=== PATIENT | female | born 1960 ===

== ENCOUNTER 2019-12-09 14:43 | Inpatient (IN) | payer OTHER ==
[2019-12-09] MEDS ORDERED: SODIUM CHLORIDE 0.9% 500 ML 500 ML IV STA (15:38)
[2019-12-09] MEDS ORDERED: HYDROmorphone 0.5 MG/0.5 ML SYRINGE IVP STA (15:38)
--- NOTE | 2019-12-09 15:42 | ED ---
General Adult HPI - General Chief complaint: Abdominal Pain Stated complaint: Abdominal pain Time Seen by Provider: 12/09/19 15:31 Source: family, RN notes reviewed, old records reviewed Mode of arrival: ambulatory Limitations: language barrier - History of Present Illness Initial comments: 59-year-old female presenting for evaluation of abdominal pain, poor appetite and oral intake, fever, vaginal bleeding. History is very limited history is obtained from the patient's who speaks limited Vietnamese but is able to give historical details. States that over the past several days she's had diffuse abdominal pain dysuria and intermittent vaginal bleeding. Denies rectal bleeding. Only medication the patient is currently taking his acetaminophen. According to her she has no previous medical or surgical history. She has not been eating well in the past several days. There is been no vomiting. No diarrhea. Pain is generalized abdominal pain. - Related Data Home Medications Medication Instructions Recorded Confirmed Acetaminophen [Tylenol Extra 500 mg PO BID 12/09/19 12/09/19 Strength] Naproxen Sodium [Aleve] 220 mg PO Q6H 12/09/19 12/09/19 Allergies Allergy/AdvReac Type Severity Reaction Status Date / Time No Known Allergies Allergy Verified 12/09/19 17:19 Review of Systems ROS Statement: Those systems with pertinent positive or pertinent negative responses have been documented in the HPI. ROS Other: All systems not noted in ROS Statement are negative. Past Medical History Past Medical History: No Reported History History of Any Multi-Drug Resistant Organisms: None Reported Past Surgical History: No Surgical Hx Reported Past Psychological History: No Psychological Hx Reported Smoking Status: Never smoker Past Alcohol Use History: None Reported Past Drug Use History: None Reported General Exam Limitations: no limitations General appearance: alert, in no apparent distress Head exam: Present: atraumatic, normocephalic Eye exam: Present: normal appearance, PERRL ENT exam: Present: mucous membranes dry Neck exam: Present: normal inspection. Absent: tenderness, meningismus Respiratory exam: Present: normal lung sounds bilaterally, other (Tachypneic with good air entry). Absent: respiratory distress Cardiovascular Exam: Present: normal rhythm, tachycardia GI/Abdominal exam: Present: soft, distended, tenderness. Absent: guarding, rebound Extremities exam: Present: normal inspection, normal capillary refill. Absent: pedal edema Neurological exam: Present: alert Skin exam: Present: warm, dry, intact. Absent: cyanosis, diaphoretic Course Vital Signs 12/09/19 12/09/19 12/09/19 15:23 17:46 18:37 Temperature 100.2 F H 103.3 F H Pulse Rate 107 H 112 H 113 H Respiratory 20 18 20 Rate Blood Pressure 105/70 125/81 145/93 O2 Sat by Pulse 95 95 94 L Oximetry EKG Findings - EKG Comments: EKG Findings:: EKG: Sinus tachycardia, rate of 106, NM interval 128, QRS duration 94, QTC of 459, no ST segment elevation. Medical Decision Making - Medical Decision Making 59-year-old female with diffuse abdominal pain, fever. History limited. On exam patient has mild diffuse tenderness to palpation. She is tachypneic with good air entry. No documented medical history. Patient's has complete workup initiated including laboratory testing, CT abdomen pelvis, ultrasound of pelvis. White count normal 7.5, hemoglobin stable 15.2. She has a lactic acid of 3.2 which is likely combination of both infectious but predominantly dehydration secondary to diabetic ketoacidosis. She has a mildly elevated potassium of 5.4. She is acidotic with a CO2 of 16 and an anion gap of 25. Glucose is 885. She does have a transaminitis, however computed tomography scan does not reveal any liver or gallbladder pathology. She has CT evidence of pyelonephritis. Urinalysis is consistent with diabetic ketoacidosis with 4+ glucose and 3+ ketones as well as signs of urinary tract infection. She's given IV hydration, started on insulin infusion, IV antibiotics. She has down trending glucose. She is evaluated by Dr. Patino in the emergency department who will admit. She is placed in a monitored bed. - Lab Data Result diagrams: 12/09/19 15:53 12/09/19 15:53 Lab Results 12/09/19 12/09/19 12/09/19 Range/Units 15:53 15:53 15:53 WBC 7.5 (3.8-10.6) k/uL RBC 5.03 (3.80-5.40) m/uL Hgb 15.2 (11.4-16.0) gm/dL Hct 49.7 H (34.0-46.0) % MCV 98.9 (80.0-100.0) fL MCH 30.2 (25.0-35.0) pg MCHC 30.6 L (31.0-37.0) g/dL RDW 13.0 (11.5-15.5) % Plt Count 196 (150-450) k/uL Neutrophils % 89 % Lymphocytes % 6 % Monocytes % 3 % Eosinophils % 0 % Basophils % 0 % Neutrophils # 6.7 (1.3-7.7) k/uL Lymphocytes # 0.5 L (1.0-4.8) k/uL Monocytes # 0.3 (0-1.0) k/uL Eosinophils # 0.0 (0-0.7) k/uL Basophils # 0.0 (0-0.2) k/uL Hypochromasia Marked PT 10.6 (9.0-12.0) sec INR 1.0 (<1.2) APTT 23.4 (22.0-30.0) sec Sodium (137-145) mmol/L Potassium (3.5-5.1) mmol/L Chloride (98-107) mmol/L Carbon Dioxide (22-30) mmol/L Anion Gap mmol/L BUN (7-17) mg/dL Creatinine (0.52-1.04) mg/dL Est GFR (CKD-EPI)AfAm (>60 ml/min/1.73 sqM) Est GFR (CKD-EPI)NonAf (>60 ml/min/1.73 sqM) Glucose (74-99) mg/dL Lactic Ac Sepsis Rflx Plasma Lactic Acid Rolo (0.7-2.0) mmol/L Calcium (8.4-10.2) mg/dL Total Bilirubin (0.2-1.3) mg/dL AST (14-36) U/L ALT (4-34) U/L Alkaline Phosphatase (38-126) U/L Creatine Kinase (30-135) U/L Troponin I (0.000-0.034) ng/mL Total Protein (6.3-8.2) g/dL Albumin (3.5-5.0) g/dL Amylase (30-110) U/L Lipase (23-300) U/L Urine Color Colorless Urine Appearance Clear (Clear) Urine pH 5.0 (5.0-8.0) Ur Specific [place] 1.026 (1.001-1.035) Urine Protein Negative (Negative) Urine Glucose (UA) 4+ H (Negative) Urine Ketones 3+ H (Negative) Urine Blood Small H (Negative) Urine Nitrite Negative (Negative) Urine Bilirubin Negative (Negative) Urine Urobilinogen <2.0 (<2.0) mg/dL Ur Leukocyte Esterase Small H (Negative) Urine RBC 14 H (0-5) /hpf Urine WBC 21 H (0-5) /hpf Ur Squamous Epith Cells <1 (0-4) /hpf Urine Bacteria Rare H (None) /hpf Urine Mucus Rare H (None) /hpf Blood Type Blood Type Recheck Bld Type Recheck Status Antibody Screen Spec Expiration Date 12/09/19 12/09/19 12/09/19 Range/Units 15:53 15:53 15:53 WBC (3.8-10.6) k/uL RBC (3.80-5.40) m/uL Hgb (11.4-16.0) gm/dL Hct (34.0-46.0) % MCV (80.0-100.0) fL MCH (25.0-35.0) pg MCHC (31.0-37.0) g/dL RDW (11.5-15.5) % Plt Count (150-450) k/uL Neutrophils % % Lymphocytes % % Monocytes % % Eosinophils % % Basophils % % Neutrophils # (1.3-7.7) k/uL Lymphocytes # (1.0-4.8) k/uL Monocytes # (0-1.0) k/uL Eosinophils # (0-0.7) k/uL Basophils # (0-0.2) k/uL Hypochromasia PT (9.0-12.0) sec INR (<1.2) APTT (22.0-30.0) sec Sodium 134 L (137-145) mmol/L Potassium 5.4 H (3.5-5.1) mmol/L Chloride 93 L (98-107) mmol/L Carbon Dioxide 16 L (22-30) mmol/L Anion Gap 25 mmol/L BUN 19 H (7-17) mg/dL Creatinine 0.90 (0.52-1.04) mg/dL Est GFR (CKD-EPI)AfAm 81 (>60 ml/min/1.73 sqM) Est GFR (CKD-EPI)NonAf 70 (>60 ml/min/1.73 sqM) Glucose 885 H* (74-99) mg/dL Lactic Ac Sepsis Rflx Plasma Lactic Acid Rolo 3.2 H* (0.7-2.0) mmol/L Calcium 10.9 H (8.4-10.2) mg/dL Total Bilirubin 0.7 (0.2-1.3) mg/dL AST 67 H (14-36) U/L ALT 51 H (4-34) U/L Alkaline Phosphatase 233 H (38-126) U/L Creatine Kinase 30 (30-135) U/L Troponin I <0.012 (0.000-0.034) ng/mL Total Protein 9.1 H (6.3-8.2) g/dL Albumin 4.5 (3.5-5.0) g/dL Amylase 77 (30-110) U/L Lipase 68 (23-300) U/L Urine Color Urine Appearance (Clear) Urine pH (5.0-8.0) Ur Specific [place] (1.001-1.035) Urine Protein (Negative) Urine Glucose (UA) (Negative) Urine Ketones (Negative) Urine Blood (Negative) Urine Nitrite (Negative) Urine Bilirubin (Negative) Urine Urobilinogen (<2.0) mg/dL Ur Leukocyte Esterase (Negative) Urine RBC (0-5) /hpf Urine WBC (0-5) /hpf Ur Squamous Epith Cells (0-4) /hpf Urine Bacteria (None) /hpf Urine Mucus (None) /hpf Blood Type Blood Type Recheck Bld Type Recheck Status Antibody Screen Spec Expiration Date 12/09/19 12/09/19 Range/Units 15:53 16:39 WBC (3.8-10.6) k/uL RBC (3.80-5.40) m/uL Hgb (11.4-16.0) gm/dL Hct (34.0-46.0) % MCV (80.0-100.0) fL MCH (25.0-35.0) pg MCHC (31.0-37.0) g/dL RDW (11.5-15.5) % Plt Count (150-450) k/uL Neutrophils % % Lymphocytes % % Monocytes % % Eosinophils % % Basophils % % Neutrophils # (1.3-7.7) k/uL Lymphocytes # (1.0-4.8) k/uL Monocytes # (0-1.0) k/uL Eosinophils # (0-0.7) k/uL Basophils # (0-0.2) k/uL Hypochromasia PT (9.0-12.0) sec INR (<1.2) APTT (22.0-30.0) sec Sodium (137-145) mmol/L Potassium (3.5-5.1) mmol/L Chloride (98-107) mmol/L Carbon Dioxide (22-30) mmol/L Anion Gap mmol/L BUN (7-17) mg/dL Creatinine (0.52-1.04) mg/dL Est GFR (CKD-EPI)AfAm (>60 ml/min/1.73 sqM) Est GFR (CKD-EPI)NonAf (>60 ml/min/1.73 sqM) Glucose (74-99) mg/dL Lactic Ac Sepsis Rflx Y Plasma Lactic Acid Rolo (0.7-2.0) mmol/L Calcium (8.4-10.2) mg/dL Total Bilirubin (0.2-1.3) mg/dL AST (14-36) U/L ALT (4-34) U/L Alkaline Phosphatase (38-126) U/L Creatine Kinase (30-135) U/L Troponin I (0.000-0.034) ng/mL Total Protein (6.3-8.2) g/dL Albumin (3.5-5.0) g/dL Amylase (30-110) U/L Lipase (23-300) U/L Urine Color Urine Appearance (Clear) Urine pH (5.0-8.0) Ur Specific [place] (1.001-1.035) Urine Protein (Negative) Urine Glucose (UA) (Negative) Urine Ketones (Negative) Urine Blood (Negative) Urine Nitrite (Negative) Urine Bilirubin (Negative) Urine Urobilinogen (<2.0) mg/dL Ur Leukocyte Esterase (Negative) Urine RBC (0-5) /hpf Urine WBC (0-5) /hpf Ur Squamous Epith Cells (0-4) /hpf Urine Bacteria (None) /hpf Urine Mucus (None) /hpf Blood Type O Positive Blood Type Recheck No Previous Record Bld Type Recheck Status CABO Indicated Antibody Screen NEGATIVE Spec Expiration Date 12/12/2019 - 7644 Critical Care Time Critical Care Time: Yes Total Critical Care Time: 35 Disposition Clinical Impression: Pyelonephritis, Diabetic ketoacidosis Disposition: ADMITTED IP TO THIS [facility] Condition: Serious Is patient prescribed a controlled substance at d/c from ED?: No Decision to Admit Reason: Admit from EC Decision Date: 12/09/19 Decision Time: 17:45
[2019-12-09 16:27] LABS: Appearance,Urine Clear (Clear); Bacteria,Urine Rare /hpf; Bilirubin,Urine Negative (Negative); Blood,Urine Small (Negative); Color,Urine Colorless; Glucose,Urine (UA) 4+ (Negative); Leukocyte Esterase,Urine Small (Negative); Mucus,Urine Rare /hpf; Nitrite,Urine Negative (Negative); Protein,Urine Negative (Negative); RBC,Urine 14 /hpf (0-5); Specific Gravity,Urine 1.026 (1.001-1.035); Squamous Epithelial Cell,Urine <1 /hpf (0-4); Urobilinogen,Urine <2.0 mg/dL (<2.0); WBC,Urine 21 /hpf (0-5)
[2019-12-09 16:29] LABS: Ketones,Urine 3+ (Negative)
[2019-12-09 16:33] LABS: Partial Thromboplastin Time 23.4 sec (22.0-30.0); Prothrombin Time 10.6 sec (9.0-12.0)
[2019-12-09 16:39] LABS: Basophils % (A) 0 %; Eosinophils % (A) 0 %; HCT 49.7 % (34.0-46.0); HGB 15.2 gm/dL (11.4-16.0); Hypochromasia Marked; Lymphocytes # (A) 0.5 k/uL (1.0-4.8); Lymphocytes % (A) 6 %; MCH 30.2 pg (25.0-35.0); MCHC 30.6 g/dL (31.0-37.0); MCV 98.9 fL (80.0-100.0); Monocytes # (A) 0.3 k/uL (0-1.0); Monocytes % (A) 3 %; Neutrophils # (A) 6.7 k/uL (1.3-7.7); Neutrophils % (A) 89 %; Platelet Count 196 k/uL (150-450); RBC 5.03 m/uL (3.80-5.40); WBC 7.5 k/uL (3.8-10.6)
[2019-12-09] MEDS ORDERED: SODIUM CHLORIDE 0.9% 500 ML 500 ML IV ONE ×2 (16:46→17:15)
[2019-12-09] MEDS ORDERED: cefTRIAXone IN SWFI 1,000 MG/10 ML SYRINGE IVP STA (16:46)
[2019-12-09 16:55] LABS: Albumin 4.5 g/dL (3.5-5.0); Calcium 10.9 mg/dL (8.4-10.2); Total Bilirubin 0.7 mg/dL (0.2-1.3); Total Protein 9.1 g/dL (6.3-8.2)
[2019-12-09 17:05] LABS: Potassium 5.4 mmol/L (3.5-5.1)
--- NOTE | 2019-12-09 17:54 | CT ---
EXAMINATION TYPE: CT abdomen pelvis w con DATE OF EXAM: 12/09/2019 COMPARISON: HISTORY: abdominal pain CT DLP: 724 mGycm Automated exposure control for dose reduction was used. CONTRAST: Performed with IV Contrast, patient injected with 100 mL of Isovue 300. Images obtained from the diaphragm to the floor the pelvis with IV contrast. There is some mild atelectasis at the posterior lung bases. Heart size is normal. There is no pericar dial effusion. There is no pleural effusion. There is some fatty infiltration of the liver. Spleen is intact. There is no evidence of pancreatic mass. Stomach appears normal. Gallbladder appears normal. There is no adrenal mass. There is some mild decreased cortical enhancement involving the lower pole of the right kidney that measures 3 cm. There is patchy decreased enhancement of the cortex posterior and superior right kidney. There is 1.5 cm area decreased cortical enhancement anterior left kidney. There is no hydronephrosis. Ureters are not dilated. There is no retroperitoneal adenopathy. Bladder distends smoothly. There is no inguinal hernia. The bony pelvis is intact. Lumbar spine is intact. T here is no compression fracture. Hip joints appear normal. There is vacuum disc at L4-5. There is no mesenteric edema. There is no ascites or free air. There is no bowel obstruction. Appendi x is not definitely seen. There is no sign of thickened appendix. IMPRESSION: Mild fatty infiltration of the liver. Minimal atelectasis at the lung bases. Cortical decreased enhancement in both kidneys as above is more noticeable in the lower pole of the r ight kidney. I would consider possibilities of acute pyelonephritis and renal ischemia. No evidence o f any significant atherosclerotic vascular disease seen.
[2019-12-09] MEDS ORDERED: ACETAMINOPHEN TAB 500 MG TAB PO STA (18:00)
[2019-12-09] MEDS: INSULIN REGULAR 100 UNIT in SODIUM CHLORIDE 0.9% 100 ML IV SCH (18:32)
[2019-12-09 18:45] LABS: Glucose,Whole Blood 509 mg/dL (75-99)
[2019-12-09] MEDS: SODIUM CHLORIDE 0.9% 1,000 ML IV SCH ×2 (18:47→23:00)
--- NOTE | 2019-12-09 18:49 | US ---
EXAMINATION TYPE: US pelvis complete transvag DATE OF EXAM: 12/09/2019 COMPARISON: NONE CLINICAL HISTORY: Postmenopausal vaginal bleeding. ; right lateral abd pain. TECHNIQUE: . Transabdominal sonographic images of the pelvis were acquired. Transvaginal sonographi c images were medically necessary to better assess the following anatomy: endometrium. Patient had fu ll bladder on TV US thus TA US also provided additional views. Date of LMP: unknown EXAM MEASUREMENTS: Uterus: 6.0 z 4.4 x 2.0 cm Endometrial Stripe: 0.4 cm Right Ovary: 1.5 x 1.0 x 0.9 cm Left Ovary: 1.7 x 0.6 x 0.9 cm 1. Uterus: Anteverted 2. Endometrium: thickness is wnl for post menopausal bleeding; no blood was observed on the TV probe post removal by US technologist/ciaio counter molder 3. Right Ovary: wnl 4. Left Ovary: wnl Spectral, color and waveform doppler imaging shows good arterial and venous flow within the ovaries ; there is no evidence for ovarian torsion. 5. Bilateral Adnexa: wnl 6. Posterior cul-de-sac: wnl IMPRESSION: Normal uterus and endometrium. No adnexal mass. No free fluid. No evidence of ovarian torsion.
[2019-12-09] MEDS ORDERED: HYDROmorphone 0.5 MG/0.5 ML SYRINGE IVP PRN (19:22)
[2019-12-09 19:47] LABS: Glucose,Whole Blood 458 mg/dL (75-99)
[2019-12-09] MEDS: PIPERACILLIN-TAZOBACTAM 3.375 GM in SODIUM CHLORIDE 0.9% 100 ML IVPB SCH (20:14)
[2019-12-09] MEDS: PANTOPRAZOLE 40 MG/10 ML VIAL IVP SCH (20:14)
[2019-12-09] MEDS: HYDROcodone/APAP 5-325MG 1 EACH TAB PO PRN (20:15)
[2019-12-09 20:19] LABS: African American GFR (CKD) >90 (>60 ml/min/1.73 sqM); Anion Gap 20 mmol/L; Blood Urea Nitrogen 18 mg/dL (7-17); Carbon Dioxide 14 mmol/L (22-30); Chloride 106 mmol/L (98-107); Non-African American GFR(CKD) >90 (>60 ml/min/1.73 sqM); Phosphorus 3.5 mg/dL (2.5-4.5); Potassium 4.4 mmol/L (3.5-5.1); Sodium 140 mmol/L (137-145)
[2019-12-09 20:22] LABS: Glucose 511 mg/dL (74-99)
[2019-12-09] MEDS: HEPARIN SODIUM,PORCINE 5,000 UNIT/ML 1 ML VIAL SQ SCH (20:30)
[2019-12-09 20:40] LABS: Glucose,Whole Blood 433 mg/dL (75-99)
--- NOTE | 2019-12-09 20:43 | HP ---
HISTORY AND PHYSICAL DATE OF SERVICE: 12/09/2019 CHIEF COMPLAINTS: Abdominal pain as well as diabetes mellitus. HISTORY OF PRESENT ILLNESS: This 59-year-old woman who is originally from [place], [place] with no significant medical problems and not being followed by a primary physician in the outpatient setting, was complaining of abdominal pain which was felt mostly in the right side of the abdomen, lower part. The patient was brought to [facility] and admitted for further evaluation and treatment. The patient also had poor appetite, poor oral intake, and also vaginal bleeding. The initial evaluation showed uncontrolled blood sugars at 885 with evidence of possible diabetic ketoacidosis. The was admitted for evaluation and treatment. The white count is normal. Insulin drip was initiated. Urine showed possible UTI. There is no history of any fever, rigor or chills. No history of headache, loss of consciousness, seizures. The patient is unable to speak Panamanian; most of the history is taken from my discussion with the staff and ER physician as well as review of the chart and discussion with the patient's at the bedside. PAST MEDICAL HISTORY: No significant cardiovascular or respiratory illness. MEDICATIONS: Naprosyn and Tylenol. ALLERGIES: NONE. FAMILY HISTORY: No history of heart disease or strokes in the family. SOCIAL HISTORY: No history of smoking. No history of alcohol intake. REVIEW OF SYSTEMS: ENT: No diminished hearing. No diminished vision. CARDIOVASCULAR SYSTEM: No angina, palpitations. RESPIRATORY SYSTEM: No cough, hemoptysis. GI: No nausea, vomiting. : No dysuria or retention. NERVOUS SYSTEM: No numbness, weakness. ALLERGY/IMMUNOLOGY: No asthma, hayfever. MUSCULOSKELETAL: As mentioned earlier. HEMATOLOGY/ONCOLOGY: No history of anemia. ENDOCRINE: No history of diabetes, hypothyroidism. CONSTITUTIONAL: As mentioned earlier. DERMATOLOGY: Negative. RHEUMATOLOGY: Negative. PSYCHIATRY: As mentioned earlier. PHYSICAL EXAMINATION: Patient alert and oriented x3. Pulse is 113, blood pressure 145/93, respiration 20, temperature 103, pulse ox 94% on room air. HEENT: Conjunctivae normal. Oral mucosa moist. NECK: No jugular venous distention. No carotid bruit. No lymph node enlargement. CARDIOVASCULAR SYSTEM: S1, S2 muffled. No S3. No S4. RESPIRATORY SYSTEM: Breath sounds diminished at the bases. No rhonchi. No crackles. ABDOMEN: Soft. Mild diffuse tenderness. No guarding. No rigidity. No mass palpable. LEGS: No edema. No swelling. NERVOUS SYSTEM: Higher functions as mentioned earlier. Moves all 4 limbs. No focal motor or sensory deficit. LYMPHATICS: No lymph node palpable in neck, axillae or groin. SKIN: No ulcer, rash, bleeding. JOINTS: No active deforming arthropathy. LABS: WBC 7.5, hemoglobin 15.2, sodium 134, potassium 5.4. Glucose noted. Lactic acid 3.2. CT scan of the abdomen and pelvis showed mild fatty infiltration of the liver and cortical decreased enhancement, possible acute pyelonephritis and renal ischemia. ASSESSMENT: 1. Diabetes mellitus, type 2, new onset, with hyperglycemia with acute diabetic ketosis, present on admission. 2. Possible right pyelonephritis and urinary tract infection with sepsis. 3. Possible vaginal bleeding. 4. Severe abdominal pain. 5. Hyponatremia. 6. Hyperkalemia. 7. Elevated lactic acid. 8. Increased AST, ALT, possibly secondary to sepsis. 9. Possible urinary tract infection. RECOMMENDATIONS AND DISCUSSION: In this 59-year-old woman who presented with multiple complex medical issues, we will monitor the patient closely, continue the current medications, continue symptomatic treatment. Otherwise, will initiate insulin protocol according to DKA protocol. I would also recommend blood cultures and broad-spectrum antibiotics. As far as the vaginal bleeding is concerned, I would VISOR INSTALLER evaluation. Overall prognosis is guarded because of multiple complex medical issues. Further recommendations to follow. I also recommend that the patient follow up with a primary physician closely in the outpatient setting. Discussed with the patient's , who understands. Further recommendations to follow. ANTELMOL / IJN: [id number] / YANETH
[2019-12-09 21:21] LABS: Glucose,Whole Blood 323 mg/dL (75-99)
[2019-12-09 22:51] LABS: Glucose,Whole Blood 301 mg/dL (75-99)
[2019-12-09 23:09] LABS: Glucose,Whole Blood 267 mg/dL (75-99)
[2019-12-09] MEDS ORDERED: IBUPROFEN 400 MG TAB PO STA (23:46)
[2019-12-10 00:22] LABS: Glucose,Whole Blood 238 mg/dL (75-99)
[2019-12-10] MEDS: D5-0.45% NACL WITH KCL 20MEQ/L 1,000 ML IV SCH ×5 (01:10→21:45)
[2019-12-10 01:12] LABS: African American GFR (CKD) >90 (>60 ml/min/1.73 sqM); Anion Gap 9 mmol/L; Blood Urea Nitrogen 16 mg/dL (7-17); Carbon Dioxide 23 mmol/L (22-30); Chloride 110 mmol/L (98-107); Glucose 263 mg/dL (74-99); Non-African American GFR(CKD) >90 (>60 ml/min/1.73 sqM); Potassium 4.2 mmol/L (3.5-5.1); Sodium 142 mmol/L (137-145)
[2019-12-10 01:26] LABS: Glucose,Whole Blood 245 mg/dL (75-99)
[2019-12-10 02:16] LABS: Glucose,Whole Blood 233 mg/dL (75-99)
[2019-12-10 03:28] LABS: Glucose,Whole Blood 182 mg/dL (75-99)
[2019-12-10] MEDS: ACETAMINOPHEN TAB 325 MG TAB PO PRN ×3 (03:35→20:48)
[2019-12-10] MEDS: PIPERACILLIN-TAZOBACTAM 3.375 GM in SODIUM CHLORIDE 0.9% 100 ML IVPB SCH ×3 (03:42→20:35)
[2019-12-10 04:36] LABS: Glucose,Whole Blood 154 mg/dL (75-99)
[2019-12-10 05:30] LABS: Glucose,Whole Blood 124 mg/dL (75-99)
[2019-12-10] MEDS: INSULIN REGULAR 100 UNIT in SODIUM CHLORIDE 0.9% 100 ML IV SCH ×6 (05:33→19:00)
[2019-12-10] MEDS ORDERED: SODIUM CHLORIDE 0.9% 500 ML 500 ML IV ONE ×2 (05:40→07:02)
[2019-12-10 06:18] LABS: Glucose,Whole Blood 109 mg/dL (75-99)
[2019-12-10] MEDS: HEPARIN SODIUM,PORCINE 5,000 UNIT/ML 1 ML VIAL SQ SCH (06:33)
[2019-12-10 07:21] LABS: Glucose,Whole Blood 128 mg/dL (75-99)
[2019-12-10 07:32] LABS: Glucose,Whole Blood 144 mg/dL (75-99)
[2019-12-10 07:44] LABS: Basophils % (A) 0 %; Eosinophils % (A) 0 %; HCT 34.3 % (34.0-46.0); Lymphocytes # (A) 0.6 k/uL (1.0-4.8); Lymphocytes % (A) 11 %; MCH 28.9 pg (25.0-35.0); MCHC 31.7 g/dL (31.0-37.0); Mean Platelet Volume 9.2; Monocytes # (A) 0.3 k/uL (0-1.0); Monocytes % (A) 5 %; Neutrophils # (A) 4.5 k/uL (1.3-7.7); Neutrophils % (A) 81 %; Platelet Count 131 k/uL (150-450); RBC 3.75 m/uL (3.80-5.40); RDW 13.4 % (11.5-15.5); WBC 5.5 k/uL (3.8-10.6)
[2019-12-10 07:54] LABS: HGB 10.9 gm/dL (11.4-16.0); MCV 91.2 fL (80.0-100.0)
[2019-12-10 08:01] LABS: ALT 36 U/L (4-34); AST 57 U/L (14-36); African American GFR (CKD) >90 (>60 ml/min/1.73 sqM); Albumin 2.4 g/dL (3.5-5.0); Alkaline Phosphatase 84 U/L (38-126); Anion Gap 2 mmol/L; Blood Urea Nitrogen 15 mg/dL (7-17); Calcium 7.6 mg/dL (8.4-10.2); Carbon Dioxide 24 mmol/L (22-30); Chloride 113 mmol/L (98-107); Glucose 116 mg/dL (74-99); Non-African American GFR(CKD) >90 (>60 ml/min/1.73 sqM); Potassium 3.8 mmol/L (3.5-5.1); Sodium 139 mmol/L (137-145); Total Bilirubin 0.3 mg/dL (0.2-1.3); Total Protein 5.1 g/dL (6.3-8.2)
[2019-12-10] MEDS: PANTOPRAZOLE 40 MG/10 ML VIAL IVP SCH (08:59)
[2019-12-10 09:08] LABS: Glucose,Whole Blood 213 mg/dL (75-99)
[2019-12-10 10:11] LABS: Glucose,Whole Blood 235 mg/dL (75-99)
[2019-12-10 11:09] LABS: Glucose,Whole Blood 271 mg/dL (75-99)
[2019-12-10] MEDS: HYDROcodone/APAP 5-325MG 1 EACH TAB PO PRN (11:34)
[2019-12-10 12:07] LABS: Glucose,Whole Blood 326 mg/dL (75-99)
--- NOTE | 2019-12-10 12:15 | P.CNPUL ---
History of Present Illness Consult date: 12/10/19 Requesting physician: Sherif Patino Reason for consult: other (Sepsis, and hyperglycemia.) Chief complaint: Abdominal pain and weakness. History of present illness: This is a 59-year-old female from [facility], has been in the [place] for the last 8 months. Patient has no previous medical illnesses, and she was never seen by a physician in [facility] or in the [facility]. Patient presented to the ER yes terday mostly with 1 week history of multiple complaints including difficulty urinating and burning sensation on urination, intermittent episodes of flank abdominal pain bilaterally, poor appetite, and intermittent episodes of minimal vaginal spotting. Patient was evaluated in the ER, and she was noted to have evidence of a urinary tract infection, however the patient also had abnormal urine ketones and 4+ glucose in the urine. Blood sugar was noted to be 885, patient was noted to be acidotic and had low bicarb. With anion gap of 25. Patient was given fluids in the form of 0.9 normal saline, fluid boluses were given, she was placed on the DKA protocol, admitted to the ICU, placed on anti biotics empirically in the form of Rocephin, and I was asked to see this patient on consultation. Upon my evaluation, the patient was doing fairly much better, she had no nausea no vomiting, no abdominal pain, denied any specific complaints. Her anion gap was noted to be closed. Blood sugar was 116. Review of Systems Constitutional: Low-grade fever, weakness, fatigue. HEENT: Negative Pulmonary: Negative GI: Mostly vague abdominal pain Genitourinary: As noted in HPI. Patient had mostly symptoms of dysuria and burning sensation on urination. No hematuria but she had some vaginal bleeding. Endocrine: No previous history of documented diabetes. Neurologic: No headache or blurred vision or dizziness. Hematologic: No clotting bleeding or bruising except for vaginal bleeding. Psychiatric: Negative Skin: Negative Musculoskeletal: Negative Cardiac: Negative Past Medical History Past Medical History: No Reported History History of Any Multi-Drug Resistant Organisms: None Reported Past Surgical History: No Surgical Hx Reported Smoking Status: Never smoker - Past Family History Father Family Medical History: Unable to Obtain Mother Family Medical History: Unable to Obtain Medications and Allergies Home Medications Medication Instructions Recorded Confirmed Type Acetaminophen [Tylenol Extra 500 mg PO BID 12/09/19 12/09/19 History Strength] Naproxen Sodium [Aleve] 220 mg PO Q6H 12/09/19 12/09/19 History Allergies Allergy/AdvReac Type Severity Reaction Status Date / Time Pork/Porcine Containing AdvReac Unknown Verified 12/09/19 20:31 Products [Pork] Physical Exam Vitals: Vital Signs Temp Pulse Pulse Resp BP BP Pulse Ox 12/10/19 07:08 95 95/63 12/10/19 07:01 90/63 12/10/19 06:55 93 87/59 12/10/19 06:36 95 75/53 12/10/19 05:30 98.1 F 95 18 80/55 12/10/19 04:00 102 H 18 12/10/19 03:35 99.2 F 102 H 93/59 93 L 12/10/19 00:15 103 F H 12/10/19 00:00 100.3 F H 100 18 143/83 94 L 12/09/19 20:00 97.9 F 115 H 18 103/58 94 L 12/09/19 19:51 97.9 F 115 H 18 103/58 94 L 12/09/19 18:37 113 H 20 145/93 94 L 12/09/19 17:46 103.3 F H 112 H 18 125/81 95 12/09/19 15:23 100.2 F H 107 H 20 105/70 95 Intake and Output 12/09/19 12/10/19 12/10/19 22:59 06:59 14:59 Intake Total 34.504 72.255 95.241 Output Total 1000 Balance 34.504 -927.745 95.241 Intake: Intake, IV Titration 34.504 72.255 95.241 Amount Insulin Regular 100 unit 34.504 72.255 95.241 In Sodium Chloride 0.9% 100 ml @ 0.1 UNITS/KG/HR 7.33 mls/hr IV .[id number] [facility] Rx#:[id number] Output: Urine 1000 Other: # Voids 0 1 Weight 72.575 kg 72.575 kg Physical Exam: Revealed a 59-year-old female in no distress. Head: Atraumatic normocephalic. HEENT:[Neck is supple.] [No neck masses.] [No thyromegaly.] [No JVD.] They're locked, EOMI, no icterus, no neck masses, no JVD. Chest: [Clear throughout, no crackles, no rhonchi, no wheezes.] Cardiac Exam: [Normal S1 and S2, no S3 gallop, no murmur.] Abdomen: [Soft, nontender, no megaly, no rebound, no guarding, normal bowel sounds.] Extremities: [No clubbing, no edema, no cyanosis.] Good pulses bilaterally. Neurological Exam: [No focal neurologic deficit.] Alert and oriented 3. Psychiatric: Normal mood, affect and normal mental status examination. Skin: No rashes. Results - Laboratory Findings CBC and BMP: 12/10/19 06:50 12/10/19 06:50 PT/INR, D-dimer PT 10.6 sec (9.0-12.0) 12/09/19 15:53 INR 1.0 (<1.2) 12/09/19 15:53 Abnormal lab findings: Abnormal Labs 12/09/19 12/09/19 12/09/19 15:53 15:53 15:53 RBC Hgb Hct 49.7 H MCHC 30.6 L Plt Count Lymphocytes # 0.5 L Sodium 134 L Potassium 5.4 H Chloride 93 L Carbon Dioxide 16 L BUN 19 H Glucose 885 H* POC Glucose (mg/dL) Plasma Lactic Acid Rolo Calcium 10.9 H AST 67 H ALT 51 H Alkaline Phosphatase 233 H Total Protein 9.1 H Albumin Urine Glucose (UA) 4+ H Urine Ketones 3+ H Urine Blood Small H Ur Leukocyte Esterase Small H Urine RBC 14 H Urine WBC 21 H Urine Bacteria Rare H Urine Mucus Rare H 12/09/19 12/09/19 12/09/19 15:53 18:43 19:34 RBC Hgb Hct MCHC Plt Count Lymphocytes # Sodium Potassium Chloride Carbon Dioxide 14 L BUN 18 H Glucose 511 H* POC Glucose (mg/dL) 509 H Plasma Lactic Acid Rolo 3.2 H* Calcium AST ALT Alkaline Phosphatase Total Protein Albumin Urine Glucose (UA) Urine Ketones Urine Blood Ur Leukocyte Esterase Urine RBC Urine WBC Urine Bacteria Urine Mucus 12/09/19 12/09/19 12/09/19 19:46 20:38 21:12 RBC Hgb Hct MCHC Plt Count Lymphocytes # Sodium Potassium Chloride Carbon Dioxide BUN Glucose POC Glucose (mg/dL) 458 H 433 H 323 H Plasma Lactic Acid Rolo Calcium AST ALT Alkaline Phosphatase Total Protein Albumin Urine Glucose (UA) Urine Ketones Urine Blood Ur Leukocyte Esterase Urine RBC Urine WBC Urine Bacteria Urine Mucus 12/09/19 12/09/19 12/10/19 22:23 23:07 00:08 RBC Hgb Hct MCHC Plt Count Lymphocytes # Sodium Potassium Chloride 110 H Carbon Dioxide BUN Glucose 263 H POC Glucose (mg/dL) 301 H 267 H Plasma Lactic Acid Rolo Calcium AST ALT Alkaline Phosphatase Total Protein Albumin Urine Glucose (UA) Urine Ketones Urine Blood Ur Leukocyte Esterase Urine RBC Urine WBC Urine Bacteria Urine Mucus 12/10/19 12/10/19 12/10/19 00:20 01:24 02:14 RBC Hgb Hct MCHC Plt Count Lymphocytes # Sodium Potassium Chloride Carbon Dioxide BUN Glucose POC Glucose (mg/dL) 238 H 245 H 233 H Plasma Lactic Acid Rolo Calcium AST ALT Alkaline Phosphatase Total Protein Albumin Urine Glucose (UA) Urine Ketones Urine Blood Ur Leukocyte Esterase Urine RBC Urine WBC Urine Bacteria Urine Mucus 12/10/19 12/10/19 12/10/19 03:26 04:34 05:28 RBC Hgb Hct MCHC Plt Count Lymphocytes # Sodium Potassium Chloride Carbon Dioxide BUN Glucose POC Glucose (mg/dL) 182 H 154 H 124 H Plasma Lactic Acid Rolo Calcium AST ALT Alkaline Phosphatase Total Protein Albumin Urine Glucose (UA) Urine Ketones Urine Blood Ur Leukocyte Esterase Urine RBC Urine WBC Urine Bacteria Urine Mucus 12/10/19 12/10/19 12/10/19 06:17 06:50 06:50 RBC 3.75 L Hgb 10.9 L D Hct MCHC Plt Count 131 L Lymphocytes # 0.6 L Sodium Potassium Chloride 113 H Carbon Dioxide BUN Glucose 116 H POC Glucose (mg/dL) 109 H Plasma Lactic Acid Rolo Calcium 7.6 L AST 57 H ALT 36 H Alkaline Phosphatase Total Protein 5.1 L Albumin 2.4 L Urine Glucose (UA) Urine Ketones Urine Blood Ur Leukocyte Esterase Urine RBC Urine WBC Urine Bacteria Urine Mucus 12/10/19 12/10/19 12/10/19 07:10 07:31 09:07 RBC Hgb Hct MCHC Plt Count Lymphocytes # Sodium Potassium Chloride Carbon Dioxide BUN Glucose POC Glucose (mg/dL) 128 H 144 H 213 H Plasma Lactic Acid Rolo Calcium AST ALT Alkaline Phosphatase Total Protein Albumin Urine Glucose (UA) Urine Ketones Urine Blood Ur Leukocyte Esterase Urine RBC Urine WBC Urine Bacteria Urine Mucus 12/10/19 12/10/19 10:09 11:08 RBC Hgb Hct MCHC Plt Count Lymphocytes # Sodium Potassium Chloride Carbon Dioxide BUN Glucose POC Glucose (mg/dL) 235 H 271 H Plasma Lactic Acid Rolo Calcium AST ALT Alkaline Phosphatase Total Protein Albumin Urine Glucose (UA) Urine Ketones Urine Blood Ur Leukocyte Esterase Urine RBC Urine WBC Urine Bacteria Urine Mucus - Diagnostic Findings Additional studies: CT of abdomen and pelvis showed mild fatty infiltration of the liver and minimal atelectasis of the lung bases. Also questioned possible pyelonephritis, no hydronephrosis. Transvaginal ultrasound, was noted to be normal. Normal uterus and normal endometrium noted Assessment and Plan Assessment: Impression: Acute diabetic ketoacidosis Acute urinary tract infection, Acute pyelonephritis is strongly suspected. Vaginal bleeding, patient is not clear about the history of vaginal bleeding, however the patient will need to be evaluated by [employer], could not understand from the patient whether the bleeding is vaginal or she is describing hematuria with dysuria. Mostly because of the language barrier. Although I was able to speak to the patient in Irish Recommendation: Continue present supportive care measures Continue to follow the DKA protocol. Her anion gap has closed early this morning. Continue IV fluids. Possibly switch the patient was sliding scale insulin coverage. Continue empiric antibiotics and adjust according to the final urine culture. Continue to monitor in the ICU for the next 24 hours. [employer] consultation is appropriate. We'll continue to follow. Time with Patient: Greater than 30
[2019-12-10 12:26] LABS: Hemoglobin A1C 16.3 % (4.0-6.0)
[2019-12-10 13:12] LABS: Glucose,Whole Blood 310 mg/dL (75-99)
[2019-12-10 14:09] LABS: Glucose,Whole Blood 287 mg/dL (75-99)
[2019-12-10 15:13] LABS: Glucose,Whole Blood 270 mg/dL (75-99)
[2019-12-10 16:07] LABS: Glucose,Whole Blood 230 mg/dL (75-99)
[2019-12-10 17:22] LABS: Glucose,Whole Blood 270 mg/dL (75-99)
[2019-12-10 18:00] LABS: Glucose,Whole Blood 276 mg/dL (75-99)
[2019-12-10 18:56] LABS: Glucose,Whole Blood 221 mg/dL (75-99)
[2019-12-10 20:32] LABS: Glucose,Whole Blood 247 mg/dL (75-99)
[2019-12-10] MEDS: INSULIN DETEMIR (LEVEMIR) 100 UNIT/ML SYR SQ SCH (21:44)
--- NOTE | 2019-12-11 01:45 | P.CONS ---
History of Present Illness - Reason for Consult Consult date: 12/10/19 Gram-negative bacteremia Requesting physician: Sherif Patino - Chief Complaint Generalized weakness and urinary burning x few days - History of Present Illness Patient is a 59-year-old female from [facility] who has been in the [place] for the last 8 months with no significant past medical history has been brought into the ER With symptom of generalized weakness urinary burning frequency and suprapubic discomfort nausea and vomiting along with fever with worsening of her symptoms patient has been brought into the ER on arrival to the patient did have a fever of 103F patient did have a normal white count liver enzymes mildly elevated patient did have a positive UA she did have CT of abdominal pelvis which showed normal gallbladder but it shows abnormality of the right kidney upper pole with concern for pyelonephritis she was also noticed to have elevated blood sugar of 885 patient has been diagnosed with new onset diabetes mellitus with DKA and likely right-sided pyelonephritis patient was started on Rocephin she did have blood cultures obtained and positive for gram-negative bacilli antibiotic was switched over to Zosyn and infectious disease was consulted for further management of antibiotic therapy Review of Systems Positive point has been mentioned in the HPI rest of the systems are negative Past Medical History Past Medical History: No Reported History History of Any Multi-Drug Resistant Organisms: None Reported Past Surgical History: No Surgical Hx Reported Smoking Status: Never smoker - Past Family History Father Family Medical History: Unable to Obtain Mother Family Medical History: Unable to Obtain Medications and Allergies Home Medications Medication Instructions Recorded Confirmed Type Acetaminophen [Tylenol Extra 500 mg PO BID 12/09/19 12/09/19 History Strength] Naproxen Sodium [Aleve] 220 mg PO Q6H 12/09/19 12/09/19 History Allergies Allergy/AdvReac Type Severity Reaction Status Date / Time Pork/Porcine Containing AdvReac Unknown Verified 12/09/19 20:31 Products [Pork] Physical Exam Vitals: Vital Signs Temp Pulse Pulse Resp BP BP Pulse Ox 12/10/19 13:00 103 H 16 99/78 92 L 12/10/19 12:00 100.1 F H 102 H 95 10 L 98/70 95 12/10/19 11:00 108 H 20 100/76 94 L 12/10/19 10:30 103 H 21 100/76 94 L 12/10/19 10:00 99 19 96/63 92 L 12/10/19 09:30 102 H 28 H 96/63 98 12/10/19 09:00 94 22 106/75 98 12/10/19 08:45 91 14 89/68 98 12/10/19 08:30 90 15 93/68 99 12/10/19 08:15 84 17 93/70 98 12/10/19 08:00 98.0 F 89 95 16 90/64 99 12/10/19 07:45 91 22 95/70 98 12/10/19 07:30 96 17 92/64 12/10/19 07:08 95 95/63 12/10/19 07:01 90/63 12/10/19 06:55 93 87/59 12/10/19 06:36 95 75/53 12/10/19 05:30 98.1 F 95 18 80/55 12/10/19 04:00 102 H 18 12/10/19 03:35 99.2 F 102 H 93/59 93 L 12/10/19 00:15 103 F H 12/10/19 00:00 100.3 F H 100 18 143/83 94 L 12/09/19 20:00 97.9 F 115 H 18 103/58 94 L 12/09/19 19:51 97.9 F 115 H 18 103/58 94 L 12/09/19 19:15 118 H 14 96 12/09/19 19:00 115 H 18 145/93 96 12/09/19 18:45 116 H 20 145/93 95 12/09/19 18:37 113 H 20 145/93 94 L 12/09/19 18:30 112 H 12 131/90 12/09/19 18:15 109 H 21 131/90 95 12/09/19 18:00 110 H 21 125/81 93 L 12/09/19 17:46 103.3 F H 112 H 18 125/81 95 12/09/19 17:45 113 H 21 12/09/19 17:38 115 H 25 H 12/09/19 17:15 118 H 16 12/09/19 17:00 113 H 23 12/09/19 16:45 111 H 18 12/09/19 16:30 106 H 15 12/09/19 16:15 109 H 25 H 12/09/19 16:00 106 H 24 12/09/19 15:57 106 H 24 12/09/19 15:23 100.2 F H 107 H 20 105/70 95 Intake and Output 12/09/19 12/10/19 12/10/19 22:59 06:59 14:59 Intake Total 34.504 72.255 346.241 Output Total 1000 3600 Balance 34.504 -927.745 -3253.759 Intake: Intake, IV Titration 34.504 72.255 196.241 Amount Insulin Regular 100 unit 34.504 72.255 196.241 In Sodium Chloride 0.9% 100 ml @ 0.1 UNITS/KG/HR 7.33 mls/hr IV .[id number] [facility] Rx#:[id number] Oral 150 Output: Urine 1000 3600 Other: # Voids 0 1 1 Weight 72.575 kg 67 kg 72.575 kg GENERAL DESCRIPTION: Middle-aged female lying in bed, no distress. No tachypnea or accessory muscle of respiration use. HEENT: Shows Pallor , no scleral icterus. Oral mucous membrane is dry. No pharyngeal erythema or thrush NECK: Trachea central, no thyromegaly. LUNGS: Unlabored breathing. Clear to auscultation anteriorly. No wheeze or crackle. HEART: S1, S2, regular rate and rhythm. No loud murmur ABDOMEN: Soft, no tenderness , guarding or rigidity, no organomegaly EXTREMITIES: No edema of feet. SKIN: No rash, no masses palpable. NEUROLOGICAL: The patient is awake, alert, oriented x3, mood and affect normal. Results CBC & Chem 7: 12/10/19 06:50 12/10/19 06:50 Labs: Abnormal Lab Results - Last 24 Hours (Table) 12/09/19 12/09/19 12/09/19 Range/Units 15:53 15:53 15:53 RBC (3.80-5.40) m/uL Hgb (11.4-16.0) gm/dL Hct 49.7 H (34.0-46.0) % MCHC 30.6 L (31.0-37.0) g/dL Plt Count (150-450) k/uL Lymphocytes # 0.5 L (1.0-4.8) k/uL Sodium 134 L (137-145) mmol/L Potassium 5.4 H (3.5-5.1) mmol/L Chloride 93 L (98-107) mmol/L Carbon Dioxide 16 L (22-30) mmol/L BUN 19 H (7-17) mg/dL Glucose 885 H* (74-99) mg/dL POC Glucose (mg/dL) (75-99) mg/dL Hemoglobin A1c (4.0-6.0) % Plasma Lactic Acid Rolo (0.7-2.0) mmol/L Calcium 10.9 H (8.4-10.2) mg/dL AST 67 H (14-36) U/L ALT 51 H (4-34) U/L Alkaline Phosphatase 233 H (38-126) U/L Total Protein 9.1 H (6.3-8.2) g/dL Albumin (3.5-5.0) g/dL Urine Glucose (UA) 4+ H (Negative) Urine Ketones 3+ H (Negative) Urine Blood Small H (Negative) Ur Leukocyte Esterase Small H (Negative) Urine RBC 14 H (0-5) /hpf Urine WBC 21 H (0-5) /hpf Urine Bacteria Rare H (None) /hpf Urine Mucus Rare H (None) /hpf 12/09/19 12/09/19 12/09/19 Range/Units 15:53 18:43 19:34 RBC (3.80-5.40) m/uL Hgb (11.4-16.0) gm/dL Hct (34.0-46.0) % MCHC (31.0-37.0) g/dL Plt Count (150-450) k/uL Lymphocytes # (1.0-4.8) k/uL Sodium (137-145) mmol/L Potassium (3.5-5.1) mmol/L Chloride (98-107) mmol/L Carbon Dioxide 14 L (22-30) mmol/L BUN 18 H (7-17) mg/dL Glucose 511 H* (74-99) mg/dL POC Glucose (mg/dL) 509 H (75-99) mg/dL Hemoglobin A1c (4.0-6.0) % Plasma Lactic Acid Rolo 3.2 H* (0.7-2.0) mmol/L Calcium (8.4-10.2) mg/dL AST (14-36) U/L ALT (4-34) U/L Alkaline Phosphatase (38-126) U/L Total Protein (6.3-8.2) g/dL Albumin (3.5-5.0) g/dL Urine Glucose (UA) (Negative) Urine Ketones (Negative) Urine Blood (Negative) Ur Leukocyte Esterase (Negative) Urine RBC (0-5) /hpf Urine WBC (0-5) /hpf Urine Bacteria (None) /hpf Urine Mucus (None) /hpf 12/09/19 12/09/19 12/09/19 Range/Units 19:46 20:38 21:12 RBC (3.80-5.40) m/uL Hgb (11.4-16.0) gm/dL Hct (34.0-46.0) % MCHC (31.0-37.0) g/dL Plt Count (150-450) k/uL Lymphocytes # (1.0-4.8) k/uL Sodium (137-145) mmol/L Potassium (3.5-5.1) mmol/L Chloride (98-107) mmol/L Carbon Dioxide (22-30) mmol/L BUN (7-17) mg/dL Glucose (74-99) mg/dL POC Glucose (mg/dL) 458 H 433 H 323 H (75-99) mg/dL Hemoglobin A1c (4.0-6.0) % Plasma Lactic Acid Rolo (0.7-2.0) mmol/L Calcium (8.4-10.2) mg/dL AST (14-36) U/L ALT (4-34) U/L Alkaline Phosphatase (38-126) U/L Total Protein (6.3-8.2) g/dL Albumin (3.5-5.0) g/dL Urine Glucose (UA) (Negative) Urine Ketones (Negative) Urine Blood (Negative) Ur Leukocyte Esterase (Negative) Urine RBC (0-5) /hpf Urine WBC (0-5) /hpf Urine Bacteria (None) /hpf Urine Mucus (None) /hpf 12/09/19 12/09/19 12/10/19 Range/Units 22:23 23:07 00:08 RBC (3.80-5.40) m/uL Hgb (11.4-16.0) gm/dL Hct (34.0-46.0) % MCHC (31.0-37.0) g/dL Plt Count (150-450) k/uL Lymphocytes # (1.0-4.8) k/uL Sodium (137-145) mmol/L Potassium (3.5-5.1) mmol/L Chloride 110 H (98-107) mmol/L Carbon Dioxide (22-30) mmol/L BUN (7-17) mg/dL Glucose 263 H (74-99) mg/dL POC Glucose (mg/dL) 301 H 267 H (75-99) mg/dL Hemoglobin A1c (4.0-6.0) % Plasma Lactic Acid Rolo (0.7-2.0) mmol/L Calcium (8.4-10.2) mg/dL AST (14-36) U/L ALT (4-34) U/L Alkaline Phosphatase (38-126) U/L Total Protein (6.3-8.2) g/dL Albumin (3.5-5.0) g/dL Urine Glucose (UA) (Negative) Urine Ketones (Negative) Urine Blood (Negative) Ur Leukocyte Esterase (Negative) Urine RBC (0-5) /hpf Urine WBC (0-5) /hpf Urine Bacteria (None) /hpf Urine Mucus (None) /hpf 12/10/19 12/10/19 12/10/19 Range/Units 00:20 01:24 02:14 RBC (3.80-5.40) m/uL Hgb (11.4-16.0) gm/dL Hct (34.0-46.0) % MCHC (31.0-37.0) g/dL Plt Count (150-450) k/uL Lymphocytes # (1.0-4.8) k/uL Sodium (137-145) mmol/L Potassium (3.5-5.1) mmol/L Chloride (98-107) mmol/L Carbon Dioxide (22-30) mmol/L BUN (7-17) mg/dL Glucose (74-99) mg/dL POC Glucose (mg/dL) 238 H 245 H 233 H (75-99) mg/dL Hemoglobin A1c (4.0-6.0) % Plasma Lactic Acid Rolo (0.7-2.0) mmol/L Calcium (8.4-10.2) mg/dL AST (14-36) U/L ALT (4-34) U/L Alkaline Phosphatase (38-126) U/L Total Protein (6.3-8.2) g/dL Albumin (3.5-5.0) g/dL Urine Glucose (UA) (Negative) Urine Ketones (Negative) Urine Blood (Negative) Ur Leukocyte Esterase (Negative) Urine RBC (0-5) /hpf Urine WBC (0-5) /hpf Urine Bacteria (None) /hpf Urine Mucus (None) /hpf 12/10/19 12/10/19 12/10/19 Range/Units 03:26 04:34 05:28 RBC (3.80-5.40) m/uL Hgb (11.4-16.0) gm/dL Hct (34.0-46.0) % MCHC (31.0-37.0) g/dL Plt Count (150-450) k/uL Lymphocytes # (1.0-4.8) k/uL Sodium (137-145) mmol/L Potassium (3.5-5.1) mmol/L Chloride (98-107) mmol/L Carbon Dioxide (22-30) mmol/L BUN (7-17) mg/dL Glucose (74-99) mg/dL POC Glucose (mg/dL) 182 H 154 H 124 H (75-99) mg/dL Hemoglobin A1c (4.0-6.0) % Plasma Lactic Acid Rolo (0.7-2.0) mmol/L Calcium (8.4-10.2) mg/dL AST (14-36) U/L ALT (4-34) U/L Alkaline Phosphatase (38-126) U/L Total Protein (6.3-8.2) g/dL Albumin (3.5-5.0) g/dL Urine Glucose (UA) (Negative) Urine Ketones (Negative) Urine Blood (Negative) Ur Leukocyte Esterase (Negative) Urine RBC (0-5) /hpf Urine WBC (0-5) /hpf Urine Bacteria (None) /hpf Urine Mucus (None) /hpf 12/10/19 12/10/19 12/10/19 Range/Units 06:17 06:50 06:50 RBC 3.75 L (3.80-5.40) m/uL Hgb 10.9 L D (11.4-16.0) gm/dL Hct (34.0-46.0) % MCHC (31.0-37.0) g/dL Plt Count 131 L (150-450) k/uL Lymphocytes # 0.6 L (1.0-4.8) k/uL Sodium (137-145) mmol/L Potassium (3.5-5.1) mmol/L Chloride 113 H (98-107) mmol/L Carbon Dioxide (22-30) mmol/L BUN (7-17) mg/dL Glucose 116 H (74-99) mg/dL POC Glucose (mg/dL) 109 H (75-99) mg/dL Hemoglobin A1c (4.0-6.0) % Plasma Lactic Acid Rolo (0.7-2.0) mmol/L Calcium 7.6 L (8.4-10.2) mg/dL AST 57 H (14-36) U/L ALT 36 H (4-34) U/L Alkaline Phosphatase (38-126) U/L Total Protein 5.1 L (6.3-8.2) g/dL Albumin 2.4 L (3.5-5.0) g/dL Urine Glucose (UA) (Negative) Urine Ketones (Negative) Urine Blood (Negative) Ur Leukocyte Esterase (Negative) Urine RBC (0-5) /hpf Urine WBC (0-5) /hpf Urine Bacteria (None) /hpf Urine Mucus (None) /hpf 12/10/19 12/10/19 12/10/19 Range/Units 06:50 07:10 07:31 RBC (3.80-5.40) m/uL Hgb (11.4-16.0) gm/dL Hct (34.0-46.0) % MCHC (31.0-37.0) g/dL Plt Count (150-450) k/uL Lymphocytes # (1.0-4.8) k/uL Sodium (137-145) mmol/L Potassium (3.5-5.1) mmol/L Chloride (98-107) mmol/L Carbon Dioxide (22-30) mmol/L BUN (7-17) mg/dL Glucose (74-99) mg/dL POC Glucose (mg/dL) 128 H 144 H (75-99) mg/dL Hemoglobin A1c 16.3 H (4.0-6.0) % Plasma Lactic Acid Rolo (0.7-2.0) mmol/L Calcium (8.4-10.2) mg/dL AST (14-36) U/L ALT (4-34) U/L Alkaline Phosphatase (38-126) U/L Total Protein (6.3-8.2) g/dL Albumin (3.5-5.0) g/dL Urine Glucose (UA) (Negative) Urine Ketones (Negative) Urine Blood (Negative) Ur Leukocyte Esterase (Negative) Urine RBC (0-5) /hpf Urine WBC (0-5) /hpf Urine Bacteria (None) /hpf Urine Mucus (None) /hpf 12/10/19 12/10/19 12/10/19 Range/Units 09:07 10:09 11:08 RBC (3.80-5.40) m/uL Hgb (11.4-16.0) gm/dL Hct (34.0-46.0) % MCHC (31.0-37.0) g/dL Plt Count (150-450) k/uL Lymphocytes # (1.0-4.8) k/uL Sodium (137-145) mmol/L Potassium (3.5-5.1) mmol/L Chloride (98-107) mmol/L Carbon Dioxide (22-30) mmol/L BUN (7-17) mg/dL Glucose (74-99) mg/dL POC Glucose (mg/dL) 213 H 235 H 271 H (75-99) mg/dL Hemoglobin A1c (4.0-6.0) % Plasma Lactic Acid Rolo (0.7-2.0) mmol/L Calcium (8.4-10.2) mg/dL AST (14-36) U/L ALT (4-34) U/L Alkaline Phosphatase (38-126) U/L Total Protein (6.3-8.2) g/dL Albumin (3.5-5.0) g/dL Urine Glucose (UA) (Negative) Urine Ketones (Negative) Urine Blood (Negative) Ur Leukocyte Esterase (Negative) Urine RBC (0-5) /hpf Urine WBC (0-5) /hpf Urine Bacteria (None) /hpf Urine Mucus (None) /hpf 12/10/19 12/10/19 Range/Units 12:05 13:11 RBC (3.80-5.40) m/uL Hgb (11.4-16.0) gm/dL Hct (34.0-46.0) % MCHC (31.0-37.0) g/dL Plt Count (150-450) k/uL Lymphocytes # (1.0-4.8) k/uL Sodium (137-145) mmol/L Potassium (3.5-5.1) mmol/L Chloride (98-107) mmol/L Carbon Dioxide (22-30) mmol/L BUN (7-17) mg/dL Glucose (74-99) mg/dL POC Glucose (mg/dL) 326 H 310 H (75-99) mg/dL Hemoglobin A1c (4.0-6.0) % Plasma Lactic Acid Rolo (0.7-2.0) mmol/L Calcium (8.4-10.2) mg/dL AST (14-36) U/L ALT (4-34) U/L Alkaline Phosphatase (38-126) U/L Total Protein (6.3-8.2) g/dL Albumin (3.5-5.0) g/dL Urine Glucose (UA) (Negative) Urine Ketones (Negative) Urine Blood (Negative) Ur Leukocyte Esterase (Negative) Urine RBC (0-5) /hpf Urine WBC (0-5) /hpf Urine Bacteria (None) /hpf Urine Mucus (None) /hpf Microbiology - Last 24 Hours (Table) 12/09/19 15:38 Blood Culture Gram Stain - Preliminary Blood Blood Culture - Preliminary Escherichia coli 12/09/19 15:53 Blood Culture - Final Blood 12/09/19 15:53 Urine Culture - Preliminary Urine,Voided Assessment and Plan Assessment: 1- patient presented to hospital with sepsis in this patient who did have a fever tachycardia source is likely related infection concern for her right-sided pyelonephritis and likely from enteric gram-negative as she is E. coli 2- gram-negative bacteremia source is likely right-sided pyelonephritis (1) Gram-negative bacteremia Current Visit: Yes Status: Acute Code(s): R78.81 - BACTEREMIA SNOMED Code(s): 362009624705 (2) Sepsis Current Visit: Yes Status: Acute Code(s): A41.9 - SEPSIS, UNSPECIFIED ORGANISM SNOMED Code(s): 82565326 (3) Pyelonephritis Current Visit: Yes Status: Acute Code(s): N12 - TUBULO-INTERSTITIAL NEPHRITIS, NOT SPCF ACUTE OR CHRONIC SNOMED Code(s): 31600630 Plan: 1- of Zosyn 3.375 mg every 8 hours 2- IV fluids We will follow on clinical condition and cultures to further adjust medication if needed Thank you for this consultation will follow this patient with you Time with Patient: Greater than 30
[2019-12-11 02:15] LABS: Glucose,Whole Blood 259 mg/dL (75-99)
[2019-12-11] MEDS: INSULIN ASPART (NovoLOG) 100 UNIT/ML VIAL SQ SCH ×5 (02:17→20:57)
[2019-12-11] MEDS: PIPERACILLIN-TAZOBACTAM 3.375 GM in SODIUM CHLORIDE 0.9% 100 ML IVPB SCH ×3 (03:28→20:09)
[2019-12-11 05:39] LABS: Basophils % (A) 0 %; Eosinophils % (A) 1 %; HCT 37.8 % (34.0-46.0); HGB 12.3 gm/dL (11.4-16.0); Lymphocytes # (A) 1.1 k/uL (1.0-4.8); Lymphocytes % (A) 23 %; MCH 29.8 pg (25.0-35.0); MCHC 32.6 g/dL (31.0-37.0); MCV 91.5 fL (80.0-100.0); Monocytes # (A) 0.3 k/uL (0-1.0); Monocytes % (A) 7 %; Neutrophils # (A) 3.4 k/uL (1.3-7.7); Neutrophils % (A) 66 %; Platelet Count 135 k/uL (150-450); RBC 4.13 m/uL (3.80-5.40); RDW 13.6 % (11.5-15.5); WBC 5.1 k/uL (3.8-10.6)
[2019-12-11 05:43] LABS: ALT 153 U/L (4-34); AST 224 U/L (14-36); African American GFR (CKD) >90 (>60 ml/min/1.73 sqM); Albumin 2.6 g/dL (3.5-5.0); Alkaline Phosphatase 152 U/L (38-126); Anion Gap 6 mmol/L; Blood Urea Nitrogen 6 mg/dL (7-17); Calcium 7.7 mg/dL (8.4-10.2); Carbon Dioxide 22 mmol/L (22-30); Chloride 103 mmol/L (98-107); Glucose 242 mg/dL (74-99); Non-African American GFR(CKD) >90 (>60 ml/min/1.73 sqM); Potassium 3.4 mmol/L (3.5-5.1); Sodium 131 mmol/L (137-145); Total Bilirubin 0.5 mg/dL (0.2-1.3); Total Protein 5.6 g/dL (6.3-8.2)
[2019-12-11] MEDS ORDERED: Potassium Replacement Protocol 1 EACH MISC MISCELLANE PRN (05:44)
[2019-12-11 06:33] LABS: Glucose,Whole Blood 217 mg/dL (75-99)
[2019-12-11] MEDS: POTASSIUM CHLORIDE ER 20 MEQ TAB.ER PO SCH ×2 (06:36→07:11)
[2019-12-11] MEDS ORDERED: INSULIN ASPART (NovoLOG) 100 UNIT/ML VIAL SQ SCH (07:30)
[2019-12-11] MEDS: PANTOPRAZOLE 40 MG/10 ML VIAL IVP SCH (08:12)
--- NOTE | 2019-12-11 10:10 | XR ---
EXAMINATION TYPE: XR chest 1V portable DATE OF EXAM: 12/11/2019 HISTORY: cough. REFERENCE: NONE. FINDINGS: The study is quite lordotic. The heart is not enlarged. There is mild vascular congestion without paulette edema. There is blunting o f both CP angles and I could not exclude some small effusions. IMPRESSION: 1. MILD VASCULAR CONGESTION. 2. I CANNOT EXCLUDE SMALL, BILATERAL EFFUSIONS.
[2019-12-11 12:04] LABS: Glucose,Whole Blood 248 mg/dL (75-99)
--- NOTE | 2019-12-11 13:57 | P.PN ---
Subjective Progress Note Date: 12/11/19 Principal diagnosis: Acute diabetic ketoacidosis and acute gram-negative sepsis secondary to UTI and bacteremia. This is a 59-year-old female from [facility], has been in the [place] for the last 8 months. Patient has no previous medical illnesses, and she was never seen by a physician in [facility] or in the [facility]. Patient presented to the ER yesterday mostly with 1 week history of multiple complaints including difficulty urinating and burning sensation on urination, intermittent episodes of flank abdominal pain bilaterally, poor appetite, and intermittent episodes of minimal vaginal spotting. Patient was evaluated in the ER, and she was noted to have evidence of a urinary tract infection, however the patient also had abnormal urine ketones and 4+ glucose in the urine. Blood sugar was noted to be 885, patient was noted to be acidotic and had low bicarb. With anion gap of 25. Patient was given fluids in the form of 0.9 normal saline, fluid boluses were given, she was placed on the DKA protocol, admitted to the ICU, placed on antibiotics empirically in the form of Rocephin, and I was asked to see this patient on consultation. Upon my evaluation, the patient was doing fairly much better, she had no nausea no vomiting, no abdominal pain, denied any specific complaints. Her anion gap was noted to be closed. Blood sugar was 116. Patient was reevaluated today on 12/11/19, seems to be doing quite well. Patient had positive blood cultures growing E. coli. Remains on Zosyn for now, patient is hemodynamically stable, blood sugar is better controlled and she is on sliding scale. Denies any cough wheezing or shortness of breath, on physical examination she was noted to have minimal crackles. Chest x-ray showed mild vascular congestion and small bilateral pleural effusions. Hence I plan to cut down her IV fluids, and possibly diuresis if necessary. All labs today were reviewed, she was noted to have slightly elevated liver enzymes, potassium is a bit low at 3.4. CBC is relatively normal Objective - Vital Signs Vital signs: Vital Signs Temp 98.4 F 12/11/19 11:14 Pulse 99 12/11/19 11:14 Resp 16 12/11/19 11:14 BP 120/83 12/11/19 11:14 Pulse Ox 96 12/11/19 11:14 Intake & Output 12/10/19 12/11/19 12/11/19 18:59 06:59 18:59 Intake Total 896.822 8151 400 Output Total 5100 2000 100 Balance -4300.759 -729 300 Weight 72.575 kg 68.4 kg Intake: Intake, IV Titration 499.241 951 200 Amount D5-0.45% NaCl with KCl 550 20Meq/l 1,000 ml @ 150 mls/hr IV .Q6H40M [facility] Rx# :[id number] D5-0.45% NaCl with KCl 200 200 20Meq/l 1,000 ml @ 50 mls /hr IV .Q20H [facility] Rx#: [id number] Insulin Regular 100 unit 499.241 101 In Sodium Chloride 0.9% 100 ml @ 0.1 UNITS/KG/HR 7.33 mls/hr IV .[id number] [facility] Rx#:[id number] Piperacillin-Tazobactam 3 100 .375 gm In Sodium Chloride 0.9% 100 ml @ 25 mls/hr IVPB Q8H [facility] Rx#: [id number] Sodium Chloride 0.9% 500 0 ml 500 ml @ 999 mls/hr IV .Q31M [facility] Rx#:[id number] Sodium Chloride 0.9% 500 0 ml 500 ml @ 999 mls/hr IV .Q31M [facility] Rx#:[id number] Oral 300 320 200 Output: Urine 5100 2000 100 Other: # Voids 1 0 0 - Exam Physical Exam: Revealed a 59-year-old female in no distress. Head: Atraumatic normocephalic. HEENT:[Neck is supple.] [No neck masses.] [No thyromegaly.] [No JVD.] They're locked, EOMI, no icterus, no neck masses, no JVD. Chest: [Clear throughout, no crackles, no rhonchi, no wheezes.] Cardiac Exam: [Normal S1 and S2, no S3 gallop, no murmur.] Abdomen: [Soft, nontender, no megaly, no rebound, no guarding, normal bowel sounds.] Extremities: [No clubbing, no edema, no cyanosis.] Good pulses bilaterally. Neurological Exam: [No focal neurologic deficit.] Alert and oriented 3. Psychiatric: Normal mood, affect and normal mental status examination. Skin: No rashes. - Labs CBC & Chem 7: 12/11/19 04:46 12/11/19 11:57 Labs: Abnormal Lab Results - Last 24 Hours (Table) 12/10/19 12/10/19 12/10/19 Range/Units 14:08 15:11 16:05 Plt Count (150-450) k/uL Sodium (137-145) mmol/L Potassium (3.5-5.1) mmol/L BUN (7-17) mg/dL Creatinine (0.52-1.04) mg/dL Glucose (74-99) mg/dL POC Glucose (mg/dL) 287 H 270 H 230 H (75-99) mg/dL Calcium (8.4-10.2) mg/dL AST (14-36) U/L ALT (4-34) U/L Alkaline Phosphatase (38-126) U/L Total Protein (6.3-8.2) g/dL Albumin (3.5-5.0) g/dL 12/10/19 12/10/19 12/10/19 Range/Units 17:20 17:58 18:54 Plt Count (150-450) k/uL Sodium (137-145) mmol/L Potassium (3.5-5.1) mmol/L BUN (7-17) mg/dL Creatinine (0.52-1.04) mg/dL Glucose (74-99) mg/dL POC Glucose (mg/dL) 270 H 276 H 221 H (75-99) mg/dL Calcium (8.4-10.2) mg/dL AST (14-36) U/L ALT (4-34) U/L Alkaline Phosphatase (38-126) U/L Total Protein (6.3-8.2) g/dL Albumin (3.5-5.0) g/dL 12/10/19 12/11/19 12/11/19 Range/Units 20:30 02:14 04:46 Plt Count 135 L (150-450) k/uL Sodium (137-145) mmol/L Potassium (3.5-5.1) mmol/L BUN (7-17) mg/dL Creatinine (0.52-1.04) mg/dL Glucose (74-99) mg/dL POC Glucose (mg/dL) 247 H 259 H (75-99) mg/dL Calcium (8.4-10.2) mg/dL AST (14-36) U/L ALT (4-34) U/L Alkaline Phosphatase (38-126) U/L Total Protein (6.3-8.2) g/dL Albumin (3.5-5.0) g/dL 12/11/19 12/11/19 12/11/19 Range/Units 04:46 06:31 12:02 Plt Count (150-450) k/uL Sodium 131 L (137-145) mmol/L Potassium 3.4 L (3.5-5.1) mmol/L BUN 6 L (7-17) mg/dL Creatinine 0.50 L (0.52-1.04) mg/dL Glucose 242 H (74-99) mg/dL POC Glucose (mg/dL) 217 H 248 H (75-99) mg/dL Calcium 7.7 L (8.4-10.2) mg/dL AST 224 H (14-36) U/L ALT 153 H (4-34) U/L Alkaline Phosphatase 152 H (38-126) U/L Total Protein 5.6 L (6.3-8.2) g/dL Albumin 2.6 L (3.5-5.0) g/dL Microbiology - Last 24 Hours (Table) 12/09/19 15:53 Urine Culture - Preliminary Urine,Voided Gram Neg Bacilli 12/09/19 15:38 Blood Culture Gram Stain - Preliminary Blood Blood Culture - Preliminary Escherichia coli Assessment and Plan Assessment: Impression: Acute diabetic ketoacidosis Acute urinary tract infection, Acute bacteremia and sepsis. Acute pyelonephritis is strongly suspected. Vaginal bleeding, patient is not clear about the history of vaginal bleeding, however the patient will need to be evaluated by UNARMED SECURITY GUARD, could not understand from the patient whether the bleeding is vaginal or she is describing hematuria with dysuria. Mostly because of the language barrier. Although I was able to speak to the patient in Mongolian Recommendation: Continue present supportive care measures Continue sliding scale coverage for diabetes. Continue IV fluids. Decrease rate to 75 mL per hour. Continue empiric antibiotics presently on Zosyn, seen by ID on consultation. Transfer patient out of the ICU to regular medical floor today. UNARMED SECURITY GUARD consultation is appropriate. We'll continue to follow. Time with Patient: Less than 30
[2019-12-11 16:57] LABS: Glucose,Whole Blood 254 mg/dL (75-99)
[2019-12-11 20:37] LABS: Glucose,Whole Blood 372 mg/dL (75-99)
[2019-12-11] MEDS: INSULIN DETEMIR (LEVEMIR) 100 UNIT/ML SYR SQ SCH (20:58)
[2019-12-11] MEDS: D5-0.45% NACL WITH KCL 20MEQ/L 1,000 ML IV SCH (20:58)
[2019-12-11] MEDS ORDERED: ERTAPENEM 1 GM in SODIUM CHLORIDE 0.9% 50 ML IVPB STA (22:59)
--- NOTE | 2019-12-12 00:14 | PN ---
PROGRESS NOTE DATE OF SERVICE: 12/11/2019 REASON FOR FOLLOWUP: E coli urinary tract infection and bacteremia. INTERVAL HISTORY: The patient is currently afebrile. The patient has been transferred out of the ICU. Denies having any chest pain, shortness of breath or cough. No nausea or vomiting. No abdominal pain. Urinary symptom has improved. PHYSICAL EXAMINATION: Blood pressure 108/71 with a pulse of 113, temperature 98.8. She is 95% on room air. General description is a middle-aged female lying in bed in no distress. RESPIRATORY SYSTEM: Unlabored breathing, clear to auscultation anteriorly. HEART: S1, S2. Regular rate and rhythm. ABDOMEN: Soft. No tenderness. LABS: Blood culture has been finalized with ESBL E coli. DIAGNOSTIC IMPRESSION AND PLAN: Patient admitted to the hospital with sepsis. Source is urinary. Urine has now been finalized with ESBL Escherichia coli. Antibiotic will be adjusted to Invanz 1 gram daily. In view of her bacteremia, she will need a Midline to continue outpatient IV Invanz for a total of 2 weeks. Continue with supportive care. MMODL / IJN: [id number] /
[2019-12-12 02:42] LABS: Glucose,Whole Blood 321 mg/dL (75-99)
[2019-12-12 06:18] LABS: HCT 39.1 % (34.0-46.0); HGB 12.9 gm/dL (11.4-16.0); MCH 29.9 pg (25.0-35.0); MCHC 33.1 g/dL (31.0-37.0); MCV 90.6 fL (80.0-100.0); Mean Platelet Volume 9.1; Platelet Count 163 k/uL (150-450); RBC 4.32 m/uL (3.80-5.40); RDW 13.5 % (11.5-15.5); WBC 6.4 k/uL (3.8-10.6)
[2019-12-12 06:26] LABS: ALT 119 U/L (4-34); AST 95 U/L (14-36); African American GFR (CKD) >90 (>60 ml/min/1.73 sqM); Albumin 3.2 g/dL (3.5-5.0); Alkaline Phosphatase 175 U/L (38-126); Anion Gap 12 mmol/L; Blood Urea Nitrogen 8 mg/dL (7-17); Carbon Dioxide 20 mmol/L (22-30); Chloride 101 mmol/L (98-107); Glucose 309 mg/dL (74-99); Non-African American GFR(CKD) >90 (>60 ml/min/1.73 sqM); Potassium 3.6 mmol/L (3.5-5.1); Sodium 133 mmol/L (137-145); Total Bilirubin 0.6 mg/dL (0.2-1.3); Total Protein 6.5 g/dL (6.3-8.2)
[2019-12-12 06:46] LABS: Band Neutrophils % 6 %; Eosinophils # (M) 0.06 k/uL (0-0.7); Lymphocytes # (M) 1.02 k/uL (1.0-4.8); Monocytes # (M) 0.77 k/uL (0-1.0); Neutrophils % (M) 65 %; Nucleated Red Blood Cells 0 /100 WBC (0-0); Total Cells Counted 100
[2019-12-12 07:22] LABS: Glucose,Whole Blood 325 mg/dL (75-99)
[2019-12-12] MEDS: INSULIN ASPART (NovoLOG) 100 UNIT/ML VIAL SQ SCH ×4 (07:46→20:55)
[2019-12-12] MEDS: PANTOPRAZOLE 40 MG TABLET PO SCH (07:46)
[2019-12-12 10:39] LABS: Hepatitis A Antibody IgM Non-Reactive (Non-Reactive); Hepatitis C IgG Antibody Non-Reactive (Non-Reactive)
[2019-12-12 11:41] LABS: Glucose,Whole Blood 379 mg/dL (75-99)
[2019-12-12] MEDS: D5-0.45% NACL WITH KCL 20MEQ/L 1,000 ML IV SCH (12:25)
--- NOTE | 2019-12-12 13:20 | P.PN ---
Subjective Progress Note Date: 12/11/19 59-year-old female from [facility], has been in the [place] for the last 8 months. Patient has no previous medical illnesses, and she was never seen by a physician in [facility] or in the [facility]. Patient presented to the ER yesterday mostly with 1 week history of multiple complaints including difficulty urinating and burning sensation on urination, intermittent episodes of flank abdominal pain bilaterally, poor appetite, and intermittent episodes of minimal vaginal spotting. Patient was evaluated in the ER, and she was noted to have evidence of a urinary tract infection, however the patient also had abnormal urine ketones and 4+ glucose in the urine. Blood sugar was noted to be 885, patient was noted to be acidotic and had low bicarb. With anion gap of 25. Patient was given fluids in the form of 0.9 normal saline, fluid boluses were given, she was placed on the DKA protocol, admitted to the ICU 12/11/2019 Patient is seen and evaluated on medical floor; has been stabilized and transferred out of ICU; family is at bedside; patient denies any specific complaints Vital signs are stable with a temperature. 0.4, pulse 89, respirations 16 and blood pressure 120/83 Lab review shows a positive blood culture growing E. coli along with gram- negative bacilli and urine; patient remains on IV Zosyn; IDs following and recommending switching patient to IV Invanz 1 g daily; patient will need a midline to continue Invanz for a total of 2 weeks post discharge Objective - Vital Signs Vital signs: Vital Signs Temp 99.8 F H 12/11/19 08:00 Pulse 115 H 12/11/19 08:00 Resp 15 12/11/19 08:00 BP 129/88 12/11/19 08:00 Pulse Ox 95 12/11/19 08:00 Intake & Output 12/10/19 12/11/19 12/11/19 18:59 06:59 18:59 Intake Total 623.409 5247 100 Output Total 5100 2000 100 Balance -4300.759 -729 0 Weight 72.575 kg 68.4 kg Intake: Intake, IV Titration 499.241 951 100 Amount D5-0.45% NaCl with KCl 550 20Meq/l 1,000 ml @ 150 mls/hr IV .Q6H40M [facility] Rx# :[id number] D5-0.45% NaCl with KCl 200 100 20Meq/l 1,000 ml @ 50 mls /hr IV .Q20H [facility] Rx#: [id number] Insulin Regular 100 unit 499.241 101 In Sodium Chloride 0.9% 100 ml @ 0.1 UNITS/KG/HR 7.33 mls/hr IV .[id number] [facility] Rx#:[id number] Piperacillin-Tazobactam 3 100 .375 gm In Sodium Chloride 0.9% 100 ml @ 25 mls/hr IVPB Q8H [facility] Rx#: [id number] Sodium Chloride 0.9% 500 0 ml 500 ml @ 999 mls/hr IV .Q31M [facility] Rx#:[id number] Sodium Chloride 0.9% 500 0 ml 500 ml @ 999 mls/hr IV .Q31M [facility] Rx#:[id number] Oral 300 320 0 Output: Urine 5100 2000 100 Other: # Voids 1 0 1 - Exam Physical Exam: Revealed a 59-year-old female in no distress. Head: Atraumatic normocephalic. HEENT:[Neck is supple.] [No neck masses.] [No thyromegaly.] [No JVD.] They're locked, EOMI, no icterus, no neck masses, no JVD. Chest: [Clear throughout, no crackles, no rhonchi, no wheezes.] Cardiac Exam: [Normal S1 and S2, no S3 gallop, no murmur.] Abdomen: [Soft, nontender, no megaly, no rebound, no guarding, normal bowel sounds.] Extremities: [No clubbing, no edema, no cyanosis.] Good pulses bilaterally. Neurological Exam: [No focal neurologic deficit.] Alert and oriented 3. - Labs CBC & Chem 7: 12/12/19 05:55 12/12/19 05:55 Labs: Abnormal Lab Results - Last 24 Hours (Table) 12/10/19 12/10/19 12/10/19 Range/Units 06:50 10:09 11:08 Plt Count (150-450) k/uL Sodium (137-145) mmol/L Potassium (3.5-5.1) mmol/L BUN (7-17) mg/dL Creatinine (0.52-1.04) mg/dL Glucose (74-99) mg/dL POC Glucose (mg/dL) 235 H 271 H (75-99) mg/dL Hemoglobin A1c 16.3 H (4.0-6.0) % Calcium (8.4-10.2) mg/dL AST (14-36) U/L ALT (4-34) U/L Alkaline Phosphatase (38-126) U/L Total Protein (6.3-8.2) g/dL Albumin (3.5-5.0) g/dL 12/10/19 12/10/19 12/10/19 Range/Units 12:05 13:11 14:08 Plt Count (150-450) k/uL Sodium (137-145) mmol/L Potassium (3.5-5.1) mmol/L BUN (7-17) mg/dL Creatinine (0.52-1.04) mg/dL Glucose (74-99) mg/dL POC Glucose (mg/dL) 326 H 310 H 287 H (75-99) mg/dL Hemoglobin A1c (4.0-6.0) % Calcium (8.4-10.2) mg/dL AST (14-36) U/L ALT (4-34) U/L Alkaline Phosphatase (38-126) U/L Total Protein (6.3-8.2) g/dL Albumin (3.5-5.0) g/dL 12/10/19 12/10/19 12/10/19 Range/Units 15:11 16:05 17:20 Plt Count (150-450) k/uL Sodium (137-145) mmol/L Potassium (3.5-5.1) mmol/L BUN (7-17) mg/dL Creatinine (0.52-1.04) mg/dL Glucose (74-99) mg/dL POC Glucose (mg/dL) 270 H 230 H 270 H (75-99) mg/dL Hemoglobin A1c (4.0-6.0) % Calcium (8.4-10.2) mg/dL AST (14-36) U/L ALT (4-34) U/L Alkaline Phosphatase (38-126) U/L Total Protein (6.3-8.2) g/dL Albumin (3.5-5.0) g/dL 12/10/19 12/10/19 12/10/19 Range/Units 17:58 18:54 20:30 Plt Count (150-450) k/uL Sodium (137-145) mmol/L Potassium (3.5-5.1) mmol/L BUN (7-17) mg/dL Creatinine (0.52-1.04) mg/dL Glucose (74-99) mg/dL POC Glucose (mg/dL) 276 H 221 H 247 H (75-99) mg/dL Hemoglobin A1c (4.0-6.0) % Calcium (8.4-10.2) mg/dL AST (14-36) U/L ALT (4-34) U/L Alkaline Phosphatase (38-126) U/L Total Protein (6.3-8.2) g/dL Albumin (3.5-5.0) g/dL 12/11/19 12/11/19 12/11/19 Range/Units 02:14 04:46 04:46 Plt Count 135 L (150-450) k/uL Sodium 131 L (137-145) mmol/L Potassium 3.4 L (3.5-5.1) mmol/L BUN 6 L (7-17) mg/dL Creatinine 0.50 L (0.52-1.04) mg/dL Glucose 242 H (74-99) mg/dL POC Glucose (mg/dL) 259 H (75-99) mg/dL Hemoglobin A1c (4.0-6.0) % Calcium 7.7 L (8.4-10.2) mg/dL AST 224 H (14-36) U/L ALT 153 H (4-34) U/L Alkaline Phosphatase 152 H (38-126) U/L Total Protein 5.6 L (6.3-8.2) g/dL Albumin 2.6 L (3.5-5.0) g/dL 12/11/19 Range/Units 06:31 Plt Count (150-450) k/uL Sodium (137-145) mmol/L Potassium (3.5-5.1) mmol/L BUN (7-17) mg/dL Creatinine (0.52-1.04) mg/dL Glucose (74-99) mg/dL POC Glucose (mg/dL) 217 H (75-99) mg/dL Hemoglobin A1c (4.0-6.0) % Calcium (8.4-10.2) mg/dL AST (14-36) U/L ALT (4-34) U/L Alkaline Phosphatase (38-126) U/L Total Protein (6.3-8.2) g/dL Albumin (3.5-5.0) g/dL Microbiology - Last 24 Hours (Table) 12/09/19 15:53 Urine Culture - Preliminary Urine,Voided Gram Neg Bacilli 12/09/19 15:38 Blood Culture Gram Stain - Preliminary Blood Blood Culture - Preliminary Escherichia coli 12/09/19 15:53 Blood Culture - Final Blood Assessment and Plan Assessment: Acute diabetic ketoacidosis Acute urinary tract infection, Acute bacteremia and sepsis. Acute pyelonephritis is strongly suspected. Vaginal bleeding, patient is not clear about the history of vaginal bleeding, however the patient will need to be evaluated by CHEMICAL PRODUCTION TECHNICIAN, could not understand from the patient whether the bleeding is vaginal or she is describing hematuria with dysuria. Mostly because of the language barrier. Although I was able to speak to the patient in Telugu Recommendation: Continue present supportive care measures Continue sliding scale coverage for diabetes. Continue IV fluids. Decrease rate to 75 mL per hour. Continue empiric antibiotics presently on Zosyn, seen by ID on consultation. Transfer patient out of the ICU to regular medical floor today. CHEMICAL PRODUCTION TECHNICIAN consultation is appropriate. We'll continue to follow.
[2019-12-12 13:33] VITALS: BMI 25.0
--- NOTE | 2019-12-12 14:25 | P.PN ---
Subjective Progress Note Date: 12/12/19 Principal diagnosis: Acute diabetic ketoacidosis and new onset diabetes This is a 59-year-old female from [facility], has been in the [place] for the last 8 months. Patient has no previous medical illnesses, and she was never seen by a physician in [facility] or in the [facility]. Patient presented to the ER yesterday mostly with 1 week history of multiple complaints including difficulty urinating and burning sensation on urination, intermittent episodes of flank abdominal pain bilaterally, poor appetite, and intermittent episodes of minimal vaginal spotting. Patient was evaluated in the ER, and she was noted to have evidence of a urinary tract infection, however the patient also had abnormal urine ketones and 4+ glucose in the urine. Blood sugar was noted to be 885, patient was noted to be acidotic and had low bicarb. With anion gap of 25. Patient was given fluids in the form of 0.9 normal saline, fluid boluses were given, she was placed on the DKA protocol, admitted to the ICU, placed on antibiotics empirically in the form of Rocephin, and I was asked to see this saurabh gomes on consultation. Upon my evaluation, the patient was doing fairly much better, she had no nausea no vomiting, no abdominal pain, denied any specific complaints. Her anion gap was noted to be closed. Blood sugar was 116. Patient was reevaluated today on 12/11/19, seems to be doing quite well. Patient had positive blood cultures growing E. coli. Remains on Zosyn for now, patient is hemodynamically stable, blood sugar is better controlled and she is on sliding scale. Denies any cough wheezing or shortness of breath, on physical examination she was noted to have minimal crackles. Chest x-ray showed mild vascular congestion and small bilateral pleural effusions. Hence I plan to cut down her IV fluids, and possibly diuresis if necessary. All labs today were reviewed, she was noted to have slightly elevated liver enzymes, potassium is a bit low at 3.4. CBC is relatively normal On 12/12/2019 patient seen in follow-up on the general medical floor. She is awake and alert, in no acute distress, her is at the bedside he speaks Haitian and history is waiting for the patient, room air pulse ox is 97%, breathing is comfortable, patient appears to be in no acute distress, she's been afebrile, hemodynamically she is stable, breathing is nonlabored, lung sounds are clear. Patient denies any nausea vomiting or abdominal pain. Urine and blood cultures were positive for ESBL producing E. coli, the service is following and patient is on Invanz, patient was started on Levemir, and she is on sliding scale NovoLog. She is having her sugars checked before meals at bedtime, maintenance IV fluids are D5 half-normal saline with 20 of potassium at a rate of 50 ML per hour, he is tolerating a heart healthy diet. These labs have been reviewed showing CBC within normal limits, sodium is 133, potassium is 3.6, chloride is 101, CO2 is 20, BUN is 8, creatinine 0.46 Objective - Vital Signs Vital signs: Vital Signs Temp 98.1 F 12/12/19 11:38 Pulse 98 12/12/19 07:10 Resp 16 12/12/19 07:10 BP 115/78 12/12/19 07:10 Pulse Ox 97 12/12/19 07:10 Intake & Output 12/11/19 12/12/19 12/12/19 18:59 06:59 18:59 Intake Total 400 Output Total 200 Balance 200 Weight 68.4 kg Intake: Intake, IV Titration 200 Amount D5-0.45% NaCl with KCl 200 20Meq/l 1,000 ml @ 50 mls /hr IV .Q20H [facility] Rx#: [id number] Oral 200 Output: Urine 200 Other: Voiding Method Toilet # Voids 1 2 - Exam GENERAL EXAM: Alert, very pleasant, 59-year-old Albanian female, thin, does not s peak Haitian, and communicates via her who speaks Haitian, comfortable in no apparent distress. HEAD: Normocephalic/atraumatic. EYES: Normal reaction of pupils, equal size. Conjunctiva pink, sclera white. NOSE: Clear with pink turbinates. THROAT: No erythema or exudates. NECK: No masses, no JVD, no thyroid enlargement, no adenopathy. CHEST: No chest wall deformity. Symmetrical expansion. LUNGS: Equal air entry with no crackles, wheeze, rhonchi or dullness. CVS: Regular rate and rhythm, normal S1 and S2, no gallops, no murmurs, no rubs ABDOMEN: Soft, nontender. No hepatosplenomegaly, normal bowel sounds, no guarding or rigidity. EXTREMITIES: No clubbing, no edema, no cyanosis, 2+ pulses and upper and lower extremities. MUSCULOSKELETAL: Muscle strength and tone normal. SPINE: No scoliosis or deformity SKIN: No rashes CENTRAL NERVOUS SYSTEM: Alert and oriented -3. No focal deficits, tone is normal in all 4 extremities. PSYCHIATRIC: Alert and oriented -3. Appropriate affect. Intact judgment and insight. - Labs CBC & Chem 7: 12/12/19 05:55 12/12/19 05:55 Labs: Abnormal Lab Results - Last 24 Hours (Table) 12/11/19 12/11/19 12/12/19 Range/Units 16:53 20:35 02:40 Sodium (137-145) mmol/L Carbon Dioxide (22-30) mmol/L Creatinine (0.52-1.04) mg/dL Glucose (74-99) mg/dL POC Glucose (mg/dL) 254 H 372 H 321 H (75-99) mg/dL Calcium (8.4-10.2) mg/dL AST (14-36) U/L ALT (4-34) U/L Alkaline Phosphatase (38-126) U/L Albumin (3.5-5.0) g/dL 12/12/19 12/12/19 12/12/19 Range/Units 05:55 07:08 11:39 Sodium 133 L (137-145) mmol/L Carbon Dioxide 20 L (22-30) mmol/L Creatinine 0.46 L (0.52-1.04) mg/dL Glucose 309 H (74-99) mg/dL POC Glucose (mg/dL) 325 H 379 H (75-99) mg/dL Calcium 8.0 L (8.4-10.2) mg/dL AST 95 H (14-36) U/L ALT 119 H (4-34) U/L Alkaline Phosphatase 175 H (38-126) U/L Albumin 3.2 L (3.5-5.0) g/dL Microbiology - Last 24 Hours (Table) 12/09/19 15:38 Blood Culture Gram Stain - Final Blood Blood Culture - Final Escherichia coli 12/09/19 15:53 Urine Culture - Final Urine,Voided Escherichia coli Assessment and Plan Plan: Assessment: #1. Acute diabetic ketoacidosis, resolved #2. Acute urinary tract infection, and a urine culture was positive for ESBL producing E. coli currently on Invanz #3. Acute bacteremia and sepsis, related to acute urinary tract infection and blood culture was positive for ESBL producing E. coli currently on Invanz #4. Acute pyelonephritis is strongly suspected. #5. Vaginal bleeding, patient is not clear about the history of vaginal bleeding, transvaginal ultrasound was completed showing normal thickness endometrium for postmenopausal bleeding, and no blood was observed on the TV probe post removal by the US technologist, right and left ovaries were within normal limits, bilateral adnexa and posterior cul-de-sac were within normal limits Plan: Patient is doing well, she is tolerating oral intake, insulin drip has been discontinued patient is on a combination of basal insulin in the form of Levemir insulin sliding-scale insulin, anion gap has closed, vital signs are stable, no difficulty breathing, no altered mentation, today's labs have been noted. Transvaginal ultrasound results have been noted. No reports of bleeding, ID service is following and current antibiotic coverage is with Invanz. Patient will need a midline placed for outpatient IV any by confusion. Clinically stable. No acute events overnight. Pulmonary/critical care service will sign off and follow an as-needed basis I performed a history & physical examination of the patient and discussed their management with my nurse practitioner, Nikky Nieto. I reviewed the nurse practitioner's note and agree with the documented findings and plan of care. Lung sounds are positive for clear breath sounds. The findings and the impression was discussed with the patient. I attest to the documentation by the nurse practitioner. Time with Patient: Less than 30
[2019-12-12 16:57] LABS: Glucose,Whole Blood 321 mg/dL (75-99)
--- NOTE | 2019-12-12 17:29 | P.PN ---
Subjective Progress Note Date: 12/12/19 Principal diagnosis: Diabetic ketoacidosis/new-onset diabetes Acute pyelonephritis Gram-negative bacteremia Vaginal bleeding 59-year-old female from [facility], has been in the [place] for the last 8 months. Patient has no previous medical illnesses, and she was never seen by a physician in [facility] or in the [facility]. Patient presented to the ER yesterday mostly with 1 week history of multiple complaints including difficulty urinating and burning sensation on urination, intermittent episodes of flank abdominal pain bilaterally, poor appetite, and intermittent episodes of minimal vaginal spotting. Patient was evaluated in the ER, and she was noted to have evidence of a urinary tract infection, however the patient also had abnormal urine ketones and 4+ glucose in the urine. Blood sugar was noted to be 885, patient was noted to be acidotic and had low bicarb. With anion gap of 25. Patient was given fluids in the form of 0.9 normal saline, fluid boluses were given, she was placed on the DKA protocol, admitted to the ICU 12/11/2019 Patient is seen and evaluated on medical floor; has been stabilized and transferred out of ICU; family is at bedside; patient denies any specific complaints Vital signs are stable with a temperature. 0.4, pulse 89, respirations 16 and blood pressure 120/83 Lab review shows a positive blood culture growing E. coli along with gram- negative bacilli and urine; patient remains on IV Zosyn; IDs following and stu mmending switching patient to IV Invanz 1 g daily; patient will need a midline to continue Invanz for a total of 2 weeks post discharge 12/12/2019 Patient is seen and evaluated with has been at bedside; reports improvement in symptoms Vital signs remained stable with a temperature of 98.1, pulse 98, respirations 16 and blood pressure of 157/78 Lab review shows CBC within normal limits, sodium of 133, potassium of 3.6 and CO2 of 20 with BUN 8 and creatinine of 0.46 Insulin drip has been discontinued and patient is started on Levemir; blood sugars remain elevated and we will plan to increase Levemir to 20 units subcu daily at bedtime; IDs following and recommending to continue with IV Invanz didn't find the urine and blood culture and sensitivity reports are available; patient did have a transvaginal ultrasound done which was unremarkable; patient awaits evaluation by OB/Gyne Objective - Vital Signs Vital signs: Vital Signs Temp 98.1 F 12/12/19 11:38 Pulse 98 12/12/19 07:10 Resp 16 12/12/19 07:10 BP 115/78 12/12/19 07:10 Pulse Ox 97 12/12/19 07:10 Intake & Output 12/11/19 12/12/19 12/12/19 18:59 06:59 18:59 Intake Total 400 Output Total 200 Balance 200 Intake: Intake, IV Titration 200 Amount D5-0.45% NaCl with KCl 200 20Meq/l 1,000 ml @ 50 mls /hr IV .Q20H COREY Rx#: [id number] Oral 200 Output: Urine 200 Other: Voiding Method Toilet # Voids 1 2 - Exam Physical Exam: Revealed a 59-year-old female in no distress. Head: Atraumatic normocephalic. HEENT:[Neck is supple.] [No neck masses.] [No thyromegaly.] [No JVD.] They're locked, EOMI, no icterus, no neck masses, no JVD. Chest: [Clear throughout, no crackles, no rhonchi, no wheezes.] Cardiac Exam: [Normal S1 and S2, no S3 gallop, no murmur.] Abdomen: [Soft, nontender, no megaly, no rebound, no guarding, normal bowel sounds.] Extremities: [No clubbing, no edema, no cyanosis.] Good pulses bilaterally. Neurological Exam: [No focal neurologic deficit.] Alert and oriented 3. - Labs CBC & Chem 7: 12/12/19 05:55 12/12/19 05:55 Labs: Abnormal Lab Results - Last 24 Hours (Table) 12/11/19 12/11/19 12/12/19 Range/Units 16:53 20:35 02:40 Sodium (137-145) mmol/L Carbon Dioxide (22-30) mmol/L Creatinine (0.52-1.04) mg/dL Glucose (74-99) mg/dL POC Glucose (mg/dL) 254 H 372 H 321 H (75-99) mg/dL Calcium (8.4-10.2) mg/dL AST (14-36) U/L ALT (4-34) U/L Alkaline Phosphatase (38-126) U/L Albumin (3.5-5.0) g/dL 12/12/19 12/12/19 12/12/19 Range/Units 05:55 07:08 11:39 Sodium 133 L (137-145) mmol/L Carbon Dioxide 20 L (22-30) mmol/L Creatinine 0.46 L (0.52-1.04) mg/dL Glucose 309 H (74-99) mg/dL POC Glucose (mg/dL) 325 H 379 H (75-99) mg/dL Calcium 8.0 L (8.4-10.2) mg/dL AST 95 H (14-36) U/L ALT 119 H (4-34) U/L Alkaline Phosphatase 175 H (38-126) U/L Albumin 3.2 L (3.5-5.0) g/dL Microbiology - Last 24 Hours (Table) 12/09/19 15:38 Blood Culture Gram Stain - Final Blood Blood Culture - Final Escherichia coli 12/09/19 15:53 Urine Culture - Final Urine,Voided Escherichia coli Assessment and Plan Assessment: Acute diabetic ketoacidosis Acute urinary tract infection, Acute bacteremia and sepsis. Acute pyelonephritis is strongly suspected. Vaginal bleeding, patient is not clear about the history of vaginal bleeding, however the patient will need to be evaluated by [employer], could not understand from the patient whether the bleeding is vaginal or she is describing hematuria with dysuria. Mostly because of the language barrier. Although I was able to speak to the patient in [place] Recommendation: Continue present supportive care measures Continue sliding scale coverage for diabetes. Continue IV fluids. Decrease rate to 75 mL per hour. Continue empiric antibiotics presently on Zosyn, seen by ID on consultation. Transfer patient out of the ICU to regular medical floor today. [employer] consultation is appropriate. We'll continue to follow.
[2019-12-12] MEDS: ERTAPENEM 1 GM in SODIUM CHLORIDE 0.9% 50 ML IVPB SCH (19:42)
[2019-12-12 20:28] LABS: Glucose,Whole Blood 359 mg/dL (75-99)
[2019-12-12] MEDS: INSULIN DETEMIR (LEVEMIR) 100 UNIT/ML SYR SQ SCH (20:54)
--- NOTE | 2019-12-12 21:07 | PN ---
PROGRESS NOTE DATE OF SERVICE: 12/12/2019 REASON FOR FOLLOWUP: ESBL E coli bacteremia and UTI. INTERVAL HISTORY: The patient is currently afebrile. The patient is feeling better. Denies having any chest pain or shortness of breath or cough. No nausea. No vomiting. No abdominal pain. Urinary symptoms have improved. PHYSICAL EXAMINATION: Blood pressure 113/76, pulse of 90, temperature 97.8. She is 94% on room air. General description is a middle-aged female lying in bed in no distress. RESPIRATORY SYSTEM: Unlabored breathing. Clear to auscultation anteriorly. HEART: S1, S2. Regular rate and rhythm. ABDOMEN: Soft. No tenderness. LABS: Hemoglobin is 12.1, white count 6.4. BUN of 8, creatinine 0.46. DIAGNOSTIC IMPRESSION AND PLAN: Patient with ESBL Escherichia coli urinary tract infection with bacteremia. Patient is currently covered with Invanz [address] scan of abdomen and pelvis did not show any renal hydronephrosis or abnormality. Plan is to get a midline for outpatient IV Invanz 1 gram daily for a total of 2 weeks and close outpatient followup. MMODL / IJN: [id number] /
[2019-12-13 02:19] LABS: Glucose,Whole Blood 304 mg/dL (75-99)
[2019-12-13 06:59] LABS: Glucose,Whole Blood 258 mg/dL (75-99)
[2019-12-13] MEDS: INSULIN ASPART (NovoLOG) 100 UNIT/ML VIAL SQ SCH ×7 (07:48→21:35)
[2019-12-13] MEDS: PANTOPRAZOLE 40 MG TABLET PO SCH (07:48)
[2019-12-13] MEDS: D5-0.45% NACL WITH KCL 20MEQ/L 1,000 ML IV SCH (07:48)
[2019-12-13 08:33] LABS: HCT 40.9 % (34.0-46.0); HGB 12.9 gm/dL (11.4-16.0); MCH 28.4 pg (25.0-35.0); MCHC 31.4 g/dL (31.0-37.0); MCV 90.3 fL (80.0-100.0); Mean Platelet Volume 9.5; Platelet Count 184 k/uL (150-450); RBC 4.53 m/uL (3.80-5.40); RDW 13.8 % (11.5-15.5); WBC 5.9 k/uL (3.8-10.6)
[2019-12-13 08:38] LABS: African American GFR (CKD) >90 (>60 ml/min/1.73 sqM); Anion Gap 9 mmol/L; Blood Urea Nitrogen 9 mg/dL (7-17); Calcium 8.4 mg/dL (8.4-10.2); Carbon Dioxide 24 mmol/L (22-30); Chloride 102 mmol/L (98-107); Glucose 276 mg/dL (74-99); Non-African American GFR(CKD) >90 (>60 ml/min/1.73 sqM); Potassium 4.1 mmol/L (3.5-5.1); Sodium 135 mmol/L (137-145)
[2019-12-13 11:42] LABS: Eosinophils # (M) 0.06 k/uL (0-0.7); Lymphocytes # (M) 2.01 k/uL (1.0-4.8); Monocytes # (M) 0.77 k/uL (0-1.0); Neutrophils # (M) 3.07 k/uL (1.3-7.7); Neutrophils % (M) 52 %; Nucleated Red Blood Cells 0 /100 WBC (0-0); Total Cells Counted 100
[2019-12-13 11:49] LABS: Reactive Lymphocytes Present
[2019-12-13 11:50] LABS: Large Platelets Present
[2019-12-13 11:53] LABS: Glucose,Whole Blood 411 mg/dL (75-99)
--- NOTE | 2019-12-13 12:54 | PN ---
PROGRESS NOTE DATE OF SERVICE: 12/13/2019 REASON FOR FOLLOWUP: ESBL E coli bacteremia and urinary tract infection. INTERVAL HISTORY: Patient is currently afebrile. The patient is breathing comfortably. No chest pain or cough. No nausea, no vomiting, no abdominal pain and has improved. PHYSICAL EXAMINATION: Blood pressure 116/70 with a pulse of 92, temperature 98.2. She is 96% on room air. General description is a middle-aged female, lying in bed in no distress. RESPIRATORY SYSTEM: Unlabored breathing, clear to auscultation anteriorly. HEART: S1, S2. Regular rate and rhythm. ABDOMEN: Soft no tenderness. LABS: Hemoglobin is 12.8, white count 5.9. DIAGNOSTIC IMPRESSION AND PLAN: Patient ESBL E coli urinary tract infection with secondary bacteremia. PLAN: For Invanz 1 g daily for another 10-12 days and close outpatient followup. MMODL / IJN: [id number] /
[2019-12-13 15:40] VITALS: RESP 18
[2019-12-13 17:39] LABS: Glucose,Whole Blood 301 mg/dL (75-99)
[2019-12-13] MEDS: ERTAPENEM 1 GM in SODIUM CHLORIDE 0.9% 50 ML IVPB SCH (19:38)
[2019-12-13 20:59] LABS: Glucose,Whole Blood 345 mg/dL (75-99)
[2019-12-13] MEDS: INSULIN DETEMIR (LEVEMIR) 100 UNIT/ML SYR SQ SCH (21:34)
[2019-12-14 01:50] LABS: Glucose,Whole Blood 195 mg/dL (75-99)
[2019-12-14 02:14] VITALS: PULSE 86
[2019-12-14] MEDS: D5-0.45% NACL WITH KCL 20MEQ/L 1,000 ML IV SCH (05:43)
[2019-12-14 07:00] VITALS: BP 108/74; TEMP 97.5
[2019-12-14 07:02] LABS: Glucose,Whole Blood 288 mg/dL (75-99)
[2019-12-14] MEDS: INSULIN ASPART (NovoLOG) 100 UNIT/ML VIAL SQ SCH ×4 (07:47→12:14)
[2019-12-14] MEDS: PANTOPRAZOLE 40 MG TABLET PO SCH (07:48)
[2019-12-14 08:01] LABS: HCT 39.5 % (34.0-46.0); HGB 12.4 gm/dL (11.4-16.0); Hypochromasia Slight; MCH 28.9 pg (25.0-35.0); MCHC 31.5 g/dL (31.0-37.0); MCV 91.8 fL (80.0-100.0); Platelet Count 226 k/uL (150-450); RDW 13.7 % (11.5-15.5); WBC 6.6 k/uL (3.8-10.6)
[2019-12-14 08:05] LABS: African American GFR (CKD) >90 (>60 ml/min/1.73 sqM); Anion Gap 7 mmol/L; Blood Urea Nitrogen 10 mg/dL (7-17); Calcium 8.4 mg/dL (8.4-10.2); Carbon Dioxide 26 mmol/L (22-30); Chloride 101 mmol/L (98-107); Glucose 273 mg/dL (74-99); Non-African American GFR(CKD) >90 (>60 ml/min/1.73 sqM); Potassium 4.7 mmol/L (3.5-5.1); Sodium 134 mmol/L (137-145)
[2019-12-14 08:40] LABS: Lymphocytes # (M) 1.98 k/uL (1.0-4.8); Monocytes # (M) 0.33 k/uL (0-1.0); Neutrophils # (M) 4.29 k/uL (1.3-7.7); Neutrophils % (M) 65 %; Nucleated Red Blood Cells 0 /100 WBC (0-0); Total Cells Counted 100
[2019-12-14] MEDS ORDERED: ERTAPENEM 1 GM in SODIUM CHLORIDE 0.9% 50 ML IVPB STA (11:08)
[2019-12-14 11:34] LABS: Glucose,Whole Blood 425 mg/dL (75-99)
--- NOTE | 2019-12-14 13:05 | PN ---
PROGRESS NOTE DATE OF SERVICE: 12/14/2019 REASON FOR FOLLOWUP: ESBL E coli bacteremia and urinary tract infection. INTERVAL HISTORY: Patient is currently afebrile. The patient is breathing comfortably. No chest pain, shortness of breath or cough. Abdominal pain has improved, no diarrhea. PHYSICAL EXAMINATION: Blood pressure 130/74 with a pulse of 86, temperature is 98.5. She is 97% on room air. General description is a middle-aged female lying in bed in no distress. RESPIRATORY SYSTEM: Unlabored breathing, clear to auscultation anteriorly. HEART: S1, S2. Regular rate and rhythm. ABDOMEN: Soft, no tenderness. LABS: Hemoglobin is 12.4, white count of 6.7, BUN of 10, creatinine 0.50. DIAGNOSTIC IMPRESSION AND PLAN: Patient with ESBL E coli urinary tract infection with bacteremia and this patient currently covered with Invanz 1 g daily to continue for another 10-12 days to finish a course of therapy. Continue supportive care. MMODL / IJN: [id number] /
== END 2019-12-14 14:51 | disposition home health service (06) | DRG 871 ==
LOC: EC 14:43 → 3SCARD 17:15 → 2SICU 12-10 07:18 → 4SSUR 12-11 11:21
PROVIDERS: ADMIT Hospitalist; ATTEND Hospitalist
DX: A41.51 Sepsis due to Escherichia coli [E. coli] (principal); E11.10 Type 2 diabetes mellitus with ketoacidosis without coma; N10 Acute pyelonephritis; E87.1 Hypo-osmolality and hyponatremia; Z16.12 Extended spectrum beta lactamase (ESBL) resistance; E87.2 Acidosis; E86.0 Dehydration; E87.5 Hyperkalemia; Z11.59 Encounter for screening for other viral diseases; K76.0 Fatty (change of) liver, not elsewhere classified; N93.9 Abnormal uterine and vaginal bleeding, unspecified; Z79.1 Long term (current) use of non-steroidal anti-inflammatories (NSAID)
CPT/HCPCS: 36410; 36415; 71045; 74177; 76830; 76856; 76937; 80048; 80051; 80053; 81001; 82150; 82550; 82565; 82947; 83036; 83605; 83690; 84100; 84132; 84484; 84520; 85025; 85610; 85730; 86704; 86709; 86803; 86850; 86900; 86901; 87040; 87077; 87086; 87186; 93005; 93975; 96361; 96374; 96375; 99291

== ENCOUNTER → 2019-12-20 | Outpatient (CLI) | payer OTHER ==
--- NOTE | 2019-12-20 14:10 | US ---
EXAMINATION TYPE: US kidneys/renal and bladder DATE OF EXAM: 12/20/2019 COMPARISON: CT 2019 CLINICAL HISTORY: PYELONEPHRITIS. Right flank pain EXAM MEASUREMENTS: Right Kidney: 10.7 x 4.2 x 4.9 cm Left Kidney: 11.1 x 5.2 x 5.2 cm Right Kidney: no hydronephrosis or masses seen Left Kidney: no hydronephrosis or masses seen Bladder: wnl Bilateral Jets seen: no jets seen There is no evidence for hydronephrosis at this point in time. No nephrolithiasis is seen. No [place] s are identified. The urinary bladder is anechoic. Bilateral ureteral jets are seen. IMPRESSION: Unremarkable study.
== END | disposition home or self-care (01) ==
LOC: RADUSWWP 13:06
PROVIDERS: ATTEND Internal Medicine
DX: Z09 Encounter for follow-up examination after completed treatment for conditions other than malignant neoplasm (principal); Z87.448 Personal history of other diseases of urinary system
CPT/HCPCS: 76770

== ENCOUNTER → 2019-12-20 | Outpatient (CLI) | payer OTHER | END | disposition home or self-care (01) | LOC: LABWHC1 12:02 | PROVIDERS: ATTEND Internal Medicine | DX: Z53.9 Procedure and treatment not carried out, unspecified reason (principal) ==

== ENCOUNTER 2019-12-24 15:41 | Emergency (ER) | payer OTHER ==
[2019-12-24 15:49] VITALS: BP 136/78; PULSE 90; RESP 18; TEMP 98
--- NOTE | 2019-12-24 16:12 | ED ---
Recheck HPI - General Chief Complaint: Recheck/Abnormal Lab/Rx Stated Complaint: wants PICC line site changed Time Seen by Provider: 12/24/19 15:49 Source: patient Mode of arrival: ambulatory Limitations: no limitations - History of Present Illness Initial Comments: patient is a 59-year-old female presenting to the emergency department with her with complaints of pain around her PICC line. Patient had a line placed 4 days ago and is receiving IV antibiotics for a UTI, bacteremia. Patient speaks very little Occitan, is translating. states that patient had a hard time sleeping last night due to some pain around the IV site. There was a nurse out to their house yesterday who administered IV antibiotics without difficulty. There has been no redness or swelling around the site. There is been no fever or chills. There are no other complaints today. Upon arrival to the ER, her vital signs are stable. - Related Data Home Medications Medication Instructions Recorded Confirmed Acetaminophen [Tylenol Extra 500 mg PO BID 12/09/19 12/09/19 Strength] Previous Rx's Medication Instructions Recorded Ertapenem [INVanz] 1 gm IVPB Q24H #12 bag 12/13/19 Insulin Glargine,Hum.rec.anlog 24 unit SQ HS 30 Days #1 pen 12/14/19 [Basaglar Kwikpen U-100] Insulin Lispro [Admelog Solostar] 8 units SQ TID-W/MEALS 30 Days #1 12/14/19 pen Allergies Allergy/AdvReac Type Severity Reaction Status Date / Time Pork/Porcine Containing AdvReac Unknown Verified 12/09/19 20:31 Products [Pork] Review of Systems ROS Statement: Those systems with pertinent positive or pertinent negative responses have been documented in the HPI. ROS Other: All systems not noted in ROS Statement are negative. Past Medical History Past Medical History: No Reported History History of Any Multi-Drug Resistant Organisms: ESBL Date of last positivie culture/infection: 12/09/19 MDRO Source:: ESBL URINE Past Surgical History: No Surgical Hx Reported Past Psychological History: No Psychological Hx Reported Smoking Status: Never smoker - Past Family History Father Family Medical History: Unable to Obtain Mother Family Medical History: Unable to Obtain General Exam - General Exam Comments Initial Comments: GENERAL: Patient is well-developed and well-nourished. Patient is nontoxic and in no acute distress. HEAD: Atraumatic, normocephalic. EYES: Pupils equal round and reactive to light, extraocular movements intact, sclera anicteric, conjunctiva are normal. Eyelids were unremarkable. ENT: TMs normal, nares patent, oropharynx clear without exudates. Moist mucous membranes. NECK: Normal range of motion, supple without lymphadenopathy or JVD. LUNGS: Unlabored respirations. Breath sounds clear to auscultation bilaterally and equal. No wheezes rales or rhonchi. HEART: Regular rate and rhythm without murmurs, rubs or gallops. ABDOMEN: Soft, nontender, normoactive bowel sounds. No guarding, no rebound. No masses appreciated. : Deferred MUSCULOSKELETAL: Normal extremities with adequate strength and normal range of motion, no pitting or edema. No clubbing or cyanosis. NEUROLOGICAL: Normal speech, normal gait. PSYCH: Normal mood, normal affect. SKIN: Warm, Dry, normal turgor, no rashes or lesions noted. Patient has a PICC line in place in left upper arm. There is no erythema, swelling, signs of infection. Limitations: no limitations Course Vital Signs 12/24/19 15:42 Temperature 98.0 F Pulse Rate 90 Respiratory 18 Rate Blood Pressure 136/78 O2 Sat by Pulse 99 Oximetry Medical Decision Making - Medical Decision Making patient is 59-year-old female here for pain around her PICC line that is inserted and left upper arm. Her vital signs are stable, afebrile. Line was placed 4 days ago. There is no signs of infection, no erythema or swelling. Her antibiotic casillas been going in without difficulty. I discussed with patient and her that we cannot change her PICC line in the ER as there is no indication. we discussed keeping her arm straight, limit activity with the left arm, it may take some Tylenol or ibuprofen for discomfort.She needs to follow- up with her doctor. She is stable for discharge. is in agreement with this plan of care. Return parameters were discussed with the patient and her and they both verbalized understanding. Case discussed with Dr. Riggs. Disposition Clinical Impression: Left upper arm pain Disposition: HOME SELF-CARE Condition: Stable Instructions (If sedation given, give patient instructions): Normal Exam (ED) Additional Instructions: Please return to the Emergency Department if symptoms worsen or any other concerns. Follow-up with Dr. Bey as discussed. Is patient prescribed a controlled substance at d/c from ED?: No Referrals: None,Stated [REFERRING] - 1-2 days
== END 2019-12-24 16:42 | disposition home or self-care (01) ==
LOC: EC 15:41
DX: R78.81 Bacteremia (principal); N39.0 Urinary tract infection, site not specified; M79.622 Pain in left upper arm; Z79.899 Other long term (current) drug therapy; Z91.018 Allergy to other foods
CPT/HCPCS: 99283

== ENCOUNTER → 2019-12-29 | Outpatient (CLI) | payer OTHER ==
--- NOTE | 2019-12-29 08:29 | US ---
EXAMINATION TYPE: US abdomen complete DATE OF EXAM: 12/29/2019 COMPARISON: NONE CLINICAL HISTORY: Right upper quad pain R10.11. RUQ pain EXAM MEASUREMENTS: Liver Length: 18.9 cm Gallbladder Wall: 0.2 cm CBD: 0.8 cm Spleen: 10.3 cm Right Kidney: 11.5 x 2.9 x 4.4 cm Left Kidney: 11.3 x 5.3 x 4.7 cm *Technical limitations due to large amount of overlying bowel content Pancreas: Obscured by bowel gas Liver: enlarged, attenuating Gallbladder: no evidence of stones Evidence for sonographic Buitrago's sign: no CBD: dilated Spleen: wnl Right Kidney: no evidence of hydronephrosis Left Kidney: no evidence of hydronephrosis Upper IVC: wnl Abd Aorta: wnl IMPRESSION: 1. Hepatomegaly correlate for hepatic steatosis or hepatitis. 2. CBD is dilated measuring 8 mm. Distal CBD stone, sludge or mucosal lesion in the differential diag nosis relate clinically.
[2019-12-29 09:31] LABS: Basophils # (A) 0.1 k/uL (0-0.2); Basophils % (A) 1 %; Eosinophils # (A) 0.1 k/uL (0-0.7); Eosinophils % (A) 3 %; HCT 42.1 % (34.0-46.0); Lymphocytes # (A) 1.9 k/uL (1.0-4.8); Lymphocytes % (A) 44 %; MCH 28.5 pg (25.0-35.0); MCHC 30.8 g/dL (31.0-37.0); MCV 92.3 fL (80.0-100.0); Monocytes # (A) 0.3 k/uL (0-1.0); Monocytes % (A) 6 %; Neutrophils # (A) 1.9 k/uL (1.3-7.7); Neutrophils % (A) 43 %; Platelet Count 284 k/uL (150-450); RBC 4.56 m/uL (3.80-5.40); RDW 13.5 % (11.5-15.5); WBC 4.4 k/uL (3.8-10.6)
[2019-12-29 09:37] LABS: ALT 44 U/L (4-34); AST 43 U/L (14-36); African American GFR (CKD) >90 (>60 ml/min/1.73 sqM); Albumin 4.1 g/dL (3.5-5.0); Alkaline Phosphatase 138 U/L (38-126); Anion Gap 9 mmol/L; Bilirubin, Delta 0.2 mg/dL (0.0-0.2); Bilirubin,Unconjugated 0.2 mg/dL (0.0-1.1); Blood Urea Nitrogen 15 mg/dL (7-17); Calcium 9.6 mg/dL (8.4-10.2); Carbon Dioxide 25 mmol/L (22-30); Chloride 105 mmol/L (98-107); Glucose 105 mg/dL (74-99); Non-African American GFR(CKD) >90 (>60 ml/min/1.73 sqM); Potassium 4.4 mmol/L (3.5-5.1); Sodium 139 mmol/L (137-145); Total Bilirubin 0.4 mg/dL (0.2-1.3)
== END | disposition home or self-care (01) ==
LOC: RADUSWWP 07:32
PROVIDERS: ATTEND Internal Medicine
DX: K83.8 Other specified diseases of biliary tract (principal); R16.0 Hepatomegaly, not elsewhere classified; E11.65 Type 2 diabetes mellitus with hyperglycemia; R10.11 Right upper quadrant pain; Z86.19 Personal history of other infectious and parasitic diseases
CPT/HCPCS: 36415; 76700; 80048; 80076; 85025

== ENCOUNTER → 2020-02-14 | Outpatient (CLI) | payer OTHER ==
[2020-02-14 12:31] LABS: Basophils % (A) 1 %; Eosinophils # (A) 0.1 k/uL (0-0.7); Eosinophils % (A) 2 %; HCT 45.8 % (34.0-46.0); HGB 14.4 gm/dL (11.4-16.0); Lymphocytes % (A) 38 %; MCH 28.1 pg (25.0-35.0); MCHC 31.5 g/dL (31.0-37.0); MCV 89.3 fL (80.0-100.0); Mean Platelet Volume 8.8; Monocytes # (A) 0.3 k/uL (0-1.0); Monocytes % (A) 6 %; Neutrophils # (A) 2.6 k/uL (1.3-7.7); Neutrophils % (A) 50 %; Platelet Count 223 k/uL (150-450); RBC 5.13 m/uL (3.80-5.40); RDW 13.6 % (11.5-15.5); WBC 5.2 k/uL (3.8-10.6)
[2020-02-14 19:53] LABS: Erythrocyte Sedimentation Rate 20 mm/Hr (0-30)
[2020-02-14 21:27] LABS: African American GFR (CKD) 109.1 (60.0-200.0); Albumin 4.5 g/dL (3.80-4.90); Albumin/Globulin Ratio 1.45 (1.60-3.17); BUN/Creat Ratio 17.14 Ratio (12.00-20.00); Bilirubin, Conjugated 0.2 mg/dL (0.20-0.40); Bilirubin,Unconjugated 0.2 mg/dL; Calcium 9.4 mg/dL (8.7-10.3); Chol/HDL Ratio 3.22; Globulin 3.1 g/dL (1.6-3.3); LDL Cholesterol,Calculated 71.8 mg/dL (0.0-131.0); Non-African American GFR(CKD) 94.2 (60.0-200.0); Potassium 4.5 mmol/L (3.5-5.5); Total Bilirubin 0.4 mg/dL (0.3-1.2); Total Protein 7.6 g/dL (6.2-8.2); VLDL Calculation 28.2 mg/dL (5.00-40.00)
== END | disposition home or self-care (01) ==
LOC: LABWHC1 10:15
PROVIDERS: ATTEND Internal Medicine
DX: K75.9 Inflammatory liver disease, unspecified (principal); E78.5 Hyperlipidemia, unspecified; E11.65 Type 2 diabetes mellitus with hyperglycemia; E03.9 Hypothyroidism, unspecified
CPT/HCPCS: 36415; 80053; 80061; 82150; 82248; 82977; 83036; 83690; 84443; 85025; 85652

== ENCOUNTER → 2020-04-19 | Outpatient (CLI) | payer OTHER ==
[2020-04-19 15:35] LABS: ALT 35 U/L (8-44); AST 25 U/L (13-35); Glucose 145 mg/dL (70-110)
[2020-04-19 17:40] LABS: Hemoglobin A1C 13.4 % (4.0-6.0)
== END | disposition home or self-care (01) ==
LOC: LABWHC1 09:04
PROVIDERS: ATTEND Internal Medicine
DX: E11.65 Type 2 diabetes mellitus with hyperglycemia (principal); K75.9 Inflammatory liver disease, unspecified
CPT/HCPCS: 36415; 82947; 83036; 84450; 84460

== ENCOUNTER → 2020-06-15 | Outpatient (CLI) | payer OTHER ==
[2020-06-15 09:19] LABS: Basophils % (A) 1 %; Eosinophils # (A) 0.2 k/uL (0-0.7); Eosinophils % (A) 4 %; HCT 47.5 % (34.0-46.0); HGB 16.1 gm/dL (11.4-16.0); Lymphocytes # (A) 2.2 k/uL (1.0-4.8); Lymphocytes % (A) 43 %; MCH 29.9 pg (25.0-35.0); MCHC 33.9 g/dL (31.0-37.0); MCV 88.1 fL (80.0-100.0); Mean Platelet Volume 8.2; Monocytes # (A) 0.3 k/uL (0-1.0); Monocytes % (A) 6 %; Neutrophils # (A) 2.3 k/uL (1.3-7.7); Neutrophils % (A) 44 %; Platelet Count 214 k/uL (150-450); RDW 12.9 % (11.5-15.5); WBC 5.2 k/uL (3.8-10.6)
[2020-06-15 11:09] LABS: Erythrocyte Sedimentation Rate 13 mm/hr (0-20)
[2020-06-15 18:29] LABS: African American GFR (CKD) 92.9 (60.0-200.0); Albumin/Globulin Ratio 1.61 (1.60-3.17); Anion Gap 7.7 mmol/L (4.00-12.00); C Reactive Protein 0.7 mg/dL (0.0-0.8); Calcium 10.1 mg/dL (8.7-10.3); Carbon Dioxide 31.3 mmol/L (21.6-31.8); Globulin 3.1 g/dL (1.6-3.3); Non-African American GFR(CKD) 80.1 (60.0-200.0); Potassium 4.4 mmol/L (3.5-5.5); Total Bilirubin 0.5 mg/dL (0.3-1.2); Total Protein 8.1 g/dL (6.2-8.2)
[2020-06-15 19:53] LABS: Hemoglobin A1C 12.6 % (4.0-6.0)
== END | disposition home or self-care (01) ==
LOC: LABWHC1 08:44
PROVIDERS: ATTEND Internal Medicine
DX: E11.65 Type 2 diabetes mellitus with hyperglycemia (principal)
CPT/HCPCS: 36415; 80053; 83036; 85025; 85652; 86140

== ENCOUNTER → 2020-09-24 | Outpatient (CLI) | payer OTHER ==
[2020-09-24 10:14] LABS: Creatinine,Urine Random 75.7 mg/dL; Protein/Creatinine Ratio,Urine 0.185
[2020-09-24 10:44] LABS: Appearance,Urine Clear (Clear); Bacteria,Urine Rare /hpf; Bilirubin,Urine Negative (Negative); Blood,Urine Trace (Negative); Color,Urine Light Yellow; Glucose,Urine (UA) 4+ (Negative); Ketones,Urine Negative (Negative); Leukocyte Esterase,Urine Negative (Negative); Mucus,Urine Rare /hpf; Nitrite,Urine Negative (Negative); PH, Urine 5.5 (5.0-8.0); Protein,Urine Negative (Negative); RBC,Urine 1 /hpf (0-5); Specific Gravity,Urine 1.023 (1.001-1.035); Squamous Epithelial Cell,Urine 5 /hpf (0-4); Urobilinogen,Urine <2.0 mg/dL (<2.0); WBC,Urine 3 /hpf (0-5)
[2020-09-24 15:25] LABS: Urine Creatinine 70.6 mg/dL
[2020-09-24 16:53] LABS: African American GFR (CKD) 92.9 (60.0-200.0); Anion Gap 10.5 mmol/L (4.00-12.00); Calcium 9.4 mg/dL (8.7-10.3); Carbon Dioxide 24.5 mmol/L (21.6-31.8); Non-African American GFR(CKD) 80.1 (60.0-200.0); Potassium 4.5 mmol/L (3.5-5.5)
[2020-09-24 17:27] LABS: Hemoglobin A1C 11.2 % (4.0-6.0)
== END | disposition home or self-care (01) ==
LOC: LABWHC1 09:11
PROVIDERS: ATTEND Internal Medicine
DX: E11.65 Type 2 diabetes mellitus with hyperglycemia (principal); E78.5 Hyperlipidemia, unspecified; E55.9 Vitamin D deficiency, unspecified; E87.8 Other disorders of electrolyte and fluid balance, not elsewhere classified; R80.9 Proteinuria, unspecified
CPT/HCPCS: 36415; 80048; 81001; 82043; 82306; 82570; 83036; 84156; 84450; 84460